=== PATIENT | female | born 1980 | race Caucasian/White ===

== ENCOUNTER 2019-08-20 23:07 | Inpatient (IN) | payer OTHER ==
[2019-08-20 23:42] VITALS: BMI 35.6
--- NOTE | 2019-08-21 01:47 | HP ---
COWS - Scale Resting Pulse: 0= CT 80 or Below Sweatin=Flushed/Facial Moisture Restless Observation: 0= Sits Still Pupil Size: 0= Normal to Room Light Bone or Joint Aches: 4=Acute Joint/Muscle Pain Runny Nose/ Eye Tearin= Runny Nose/Eyes GI Upset > 30mins: 2= Nausea/Diarrhea Tremor Observation: 4= Gross Tremor/Twitching Yawning Observation: 1= 1-2x During Session Anxiety or Irritability: 2=Irritable/Anxious Goose Flesh Skin: 3=Piloerection COWS Score: 20 CIWA Score Nausea/Vomitin Muscle Tremors: 4-Moderate,w/Arms Extend Anxiety: 4-Mod. Anxious/Guarded Agitation: 4-Moderately Restless Paroxysmal Sweats: 2 Orientation: 0-Oriented Tacttile Disturbances: 0-None Auditory Disturbances: 2-Mild Harshness/Frighten Visual Disturbances: 2-Mild Sensitivity Headache: 0-None Present CIWA-Ar Total Score: 20 - Admission Criteria OASAS Guidelines: Admission for Medically Managed Detox: Requires at least one of the followin. CIWA greater than 12 2. Seizures within the past 24 hours 3. Delirium tremens within the past 24 hours 4. Hallucinations within the past 24 hours 5. Acute intervention needed for co occurring medical disorder 6. Acute intervention needed for co occurring psychiatric disorder 7. Severe withdrawal that cannot be handled at a lower level of care (continued vomiting, continued diarrhea, abnormal vital signs) requiring intravenous medication and/or fluids 8. Admission [facility] Chief Complaint: Alcohol and heroine withdrawal symptoms Allergies/Adverse Reactions: Allergies Allergy/AdvReac Type Severity Reaction Status Date / Time No Known Allergies Allergy Verified 08/20/19 23:25 History of Present Illness: 38 years old female with alcohol withdrawal symptoms is seeking admission to detox. This is her first time and first admission to [facility].. She has medical history of seizures nd asthma. Reports psych history of PTSD, depression, Bipolar disorder. She reports suicide attempt at age 14 and denies suicidal ideation a this time. She is a smoker. Exam Limitations: No Limitations - Ebola screening Have you traveled outside of the country in the last 21 days: No (N) Have you had contact with anyone from an Ebola affected area: No Do you have a fever: No - Review of Systems Constitutional: Chills, Loss of Appetite, Malaise, Night Sweats, Changes in sleep, Weakness EENT: reports: No Symptoms Reported, Nose Congestion Respiratory: reports: Shortness of Breath, Wheezing, Hemoptysis Cardiac: reports: No Symptoms Reported GI: reports: See HPI, Diarrhea, Poor Appetite, Poor Fluid Intake Patient History - Patient Medical History Hx Anemia: No Hx Asthma: Yes (Albuterol) Hx Chronic Obstructive Pulmonary Disease (COPD): No Hx Cancer: No Hx Cardiac Disorders: No Hx Congestive Heart Failure: No Hx Hypertension: No Hx Hypercholesterolemia: No HX Cerebrovascular Accident: No Hx Seizures: Yes (Depakote) Hx Dementia: No Hx Diabetes: No Hx Gastrointestinal Disorders: Yes (GERD -) Hx Liver Disease: No Hx Genitourinary Disorders: No Hx Sexually Transmitted Disorders: No Hx Renal Disease (ESRD): No Hx Thyroid Disease: No Hx Human Immunodeficiency Virus (HIV): No Hx Hepatitis C: No Hx Depression: No - Patient Surgical History Past Surgical History: No - PPD History Documented Results: Negative w/o proof Implanted On Prior [facility] Admission?: No PPD to be Administered?: Yes - Reproductive History Patient is a Female of Child Bearing Age (11 -55 yrs old): Yes Last Menstrual Period: 08/07/19 Patient : No - Smoking Cessation Smoking history: Current every day smoker Have you smoked in the past 12 months: Yes Aproximately how many cigarettes per day: 25 Hx Chewing Tobacco Use: No Initiated information on smoking cessation: Yes 'Breaking Loose' booklet given: 08/21/19 - Substance & Tx. History Hx Alcohol Use: Yes Hx Substance Use: Yes Substance Use Type: Alcohol, Cocaine, Heroin, Marijuana, Opiates Hx Substance Use Treatment: Yes ([facility]) - Substances abused Alcohol Substance route: Oral Frequency: Daily Amount used: 2 to 3 pints of vodka. 10 cans of beer. Age of first use: 14 Date of last use: 08/19/19 Heroin Substance route: Inhalation Frequency: Daily Amount used: 4 bags Age of first use: 20 Date of last use: 08/19/19 Marijuana/Hashish Substance route: Smoking Frequency: Daily Amount used: ' i don't know' Age of first use: 14 Date of last use: 08/19/19 Cocaine Substance route: Smoking Frequency: Daily Amount used: 100 dollars Age of first use: 17 Date of last use: 08/19/19 Admission Physical Exam [facility] - Vital Signs Vital Signs: Vital Signs - 24 hr 08/20/19 08/21/19 08/21/19 23:26 01:32 01:35 Temperature 98.0 F 98.0 F 98.0 F Pulse Rate 69 69 69 Respiratory 20 18 20 Rate Blood Pressure 128/82 128/82 128/82 - Physical General Appearance: Yes: Moderate Distress, Tremorous, Irritable, Sweating, Anxious HEENTM: Yes: Within Normal Limits, Normal Voice Respiratory: Yes: Lungs Clear, Normal Breath Sounds, No Respiratory Distress Neck: Yes: Supple Breast: Yes: Breast Exam Deferred Cardiology: Yes: Regular Rhythm, Regular Rate Abdominal: Yes: Normal Bowel Sounds Genitourinary: Yes: Within Normal Limits Back: Yes: Normal Inspection Musculoskeletal: Yes: Gait Steady Extremities: Yes: Tremors Neurological: Yes: Within Normal Limits, Fully Oriented - Diagnostic (1) Asthma Current Visit: Yes Status: Chronic (2) Seizure Current Visit: Yes Status: Chronic (3) Alcohol dependence with withdrawal, uncomplicated Current Visit: Yes Status: Acute (4) Opioid dependence with withdrawal Current Visit: Yes Status: Acute (5) Nicotine dependence Current Visit: Yes Status: Acute (6) Cocaine dependence Current Visit: Yes Status: Acute (7) Marijuana dependence Current Visit: Yes Status: Acute Cleared for Admission [facility] - Detox or Rehab [facility] Level of Care: Medically Managed Detox Regimen/Protocol: Methadone/Librium Breathalyzer - Breathalyzer Breathalyzer: 0 Urine Drug Screen - Test Device Lot number: [id number] Expiration date: 04/07/21 - Control Is test valid?: Yes - Results Drug screen NEGATIVE: No Urine drug screen results: THC-Marijuana, KELLEY-Cocaine, MOP-Opiates, BZO- Benzodiazepines Inpatient Rehab Admission - Rehab Decision to Admit Inpatient rehab admission?: No
[2019-08-21] MEDS ORDERED: cloNIDine HCL 0.1 MG TABLET PO PRN (01:58)
[2019-08-21] MEDS ORDERED: MAG HYDROX/AL HYDROX/SIMETH 30 ML UNIT-DOSE CUP PO PRN (01:58)
[2019-08-21] MEDS ORDERED: MAGNESIUM HYDROX 2400MG/30ML ORAL SUSPENSION 30 ML CUP PO PRN (01:58)
[2019-08-21] MEDS ORDERED: METHADONE HCL 10 MG TABLET (FOR DETOX USE ONLY) PO ONE (01:58)
[2019-08-21] MEDS ORDERED: MENTHOL/PHENOL 1 EACH UD MM PRN (01:58)
[2019-08-21] MEDS ORDERED: BISMUTH SUBSALICYLATE 524 MG/30 ML UD PO PRN (01:58)
[2019-08-21] MEDS ORDERED: ACETAMINOPHEN 325 MG TABLET (FP) PO PRN ×2 (01:58)
[2019-08-21] MEDS ORDERED: MAGNESIUM CITRATE 300 ML BOTTLE PO PRN (01:58)
[2019-08-21] MEDS ORDERED: MELATONIN 5 MG TABLETS PO PRN (01:58)
[2019-08-21] MEDS ORDERED: chlordiazePOXIDE HCL 25 MG CAPSULE PO PRN ×2 (01:58→03:19)
[2019-08-21] MEDS: IBUPROFEN 400 MG TABLET (FP) PO PRN ×3 (02:41→22:12)
[2019-08-21] MEDS: chlordiazePOXIDE HCL 25 MG CAPSULE PO SCH ×4 (05:43→22:12)
[2019-08-21] MEDS: PRENATAL VITAMINS W/ FOLIC ACID TABLET (FP) PO SCH (10:19)
[2019-08-21] MEDS: METHOCARBAMOL 500 MG TABLET PO PRN (10:19)
[2019-08-21] MEDS: NICOTINE POLACRILEX 2 MG GUM BUC PRN (10:25)
[2019-08-21] MEDS: NICOTINE 14 MG/24 HOURS TOPICAL PATCH TD SCH (10:26)
--- NOTE | 2019-08-21 12:58 | EKG ---
Test Reason : Blood Pressure : / mmHG Vent. Rate : 065 BPM Atrial Rate : 065 BPM P-R Int : 164 ms QRS Dur : 092 ms QT Int : 416 ms P-R-T Axes : 064 018 050 degrees QTc Int : 432 ms NORMAL SINUS RHYTHM WITH SINUS ARRHYTHMIA NORMAL ECG NO PREVIOUS ECGS AVAILABLE Confirmed by KIMANI SPICER MD ([id number]) on 08/21/2019 12:57:58 PM Referred By: Malcolm Ferreira Confirmed By:KIMANI SPICER MD
--- NOTE | 2019-08-21 14:14 | PN ---
[facility] CIWA - CIWA Score Nausea/Vomitin-No Nausea/No Vomiting Muscle Tremors: 2 Anxiety: 4-Mod. Anxious/Guarded Agitation: 0-Normal Activity Paroxysmal Sweats: 3 Orientation: 0-Oriented Tacttile Disturbances: 2-Mild Itch/Numbness/Burn Auditory Disturbances: 0-None Visual Disturbances: 2-Mild Sensitivity Headache: 0-None Present CIWA-Ar Total Score: 13 BHS COWS - Scale Resting Pulse: 0= CT 80 or Below Sweatin= Chills/Flushing Restless Observation: 1= Difficult to Sit Still Pupil Size: 0= Normal to Room Light Bone or Joint Aches: 4=Acute Joint/Muscle Pain Runny Nose/ Eye Tearin= None GI Upset > 30mins: 0= None Tremor Observation of Outstretched Hands: 2= Slight Tremor Visible Yawning Observation: 1= 1-2x During Session Anxiety or Irritability: 2=Irritable/Anxious Goose Flesh Skin: 3=Piloerection COWS Score: 14 BHS Progress Note (SOAP) Subjective: Anxious, Body Aches, Sweating, Tremors. Objective: PATIENT A & O X 3. IN NO ACUTE DISTRESS. 08/21/19 14:17 Vital Signs Temperature 97.1 F L 08/21/19 13:31 Pulse Rate 58 L 08/21/19 13:31 Respiratory Rate 18 08/21/19 13:31 Blood Pressure 109/62 08/21/19 13:31 O2 Sat by Pulse Oximetry (%) RESULTS OF DETOX ADMISSION LABS PENDING. Assessment: 08/21/19 14:16 WITHDRAWAL SYMPTOMS. Plan: CONTINUE DETOX. TODAY, PATIENT REPORTED THAT SHE FELL APPROX. 1 WEEK AGO AND THAT SHE HIT HER HEAD. PATIENT NOTES THAT SHE WAS EVALUATED AT [facility] ([facility] [place] ) AFTER FALL, BUT THAT CT SCAN WAS NOT DONE THERE. PATIENT REPORTS THAT LEFT SIDE OF FOREHEAD STILL HURTS. PATIENT DENIES DIZZINESS. SMALL AREA OF SWELLING NOTED ON LEFT SIDE OF FOREHEAD. NO ERYTHEMA, WOUNDS, OR DISCHARGE NOTED AT AFFECTED SITE. PATIENT ALSO REPORTS PAIN ON SOLE OF LEFT FOOT, JUST POSTERIOR TO TOES. PATIENT FRACTURED METATARSAL BONE IN FOOT SEVERAL MONTHS AGO, BUT REPORTS THAT SHE BELIEVES THAT "FRACTURE NEVER HEALED PROPERLY." AREA APPEARS SOMEWHAT SWOLLEN. PATIENT REPORTS AREA TO BE TENDER TO PALPATION. REPORT GIVEN TO DR. SEALS AT [facility]. PATIENT TO BE SENT TO ER VIA AMBULANCE FOR FURTHER EVALUATION OF HEAD AND OF LEFT FOOT.
--- NOTE | 2019-08-21 16:36 | CONSULT ---
[facility] Psychiatric Consult - Data Date of interview: 08/21/19 Admission source: [facility] Identifying data: Patient is not found on the unit. Psychiatric evaluation cannot be conducted. As per counselor, the patient was transferred to [facility] for medical management.
[2019-08-21] MEDS ORDERED: METHADONE HCL 10 MG TABLET PO ONE (21:55)
--- NOTE | 2019-08-21 21:57 | PN ---
[facility] Progress Note Note: Patient returned from [facility] ED, alert and oriented w/o c/o headache or neurologicla deficits, after being sent earlier today for a fall resulting in hitting her head. ED Assessment and discharge orders: Pt appearing and stable here with no focal deficits. CT negative Pt stable for return back to [facility] Patient returned to continue detox on [address]. Patient c/o feeling nauseous, having tremors, and feeling opiate having withdrawal symptoms. Last medicated w/ methadone at 2:38 am. Will give a once dose Methadone 10 mg PO.
[2019-08-21] MEDS: THIAMINE HCL 100 MG TABLET (FP) PO SCH (22:11)
[2019-08-21] MEDS ORDERED: chlordiazePOXIDE HCL 25 MG CAPSULE PO SCH (23:00)
[2019-08-22] MEDS: chlordiazePOXIDE HCL 25 MG CAPSULE PO SCH ×4 (05:35→22:15)
[2019-08-22] MEDS ORDERED: METHADONE HCL 10 MG TABLET (FOR DETOX USE ONLY) ONE (05:37)
[2019-08-22] MEDS ORDERED: METHADONE HCL 5 MG TABLET (FOR DETOX USE ONLY) ONE (05:38)
[2019-08-22] MEDS: IBUPROFEN 400 MG TABLET (FP) PO PRN ×3 (06:00→17:09)
[2019-08-22] MEDS ORDERED: METHADONE (DETOX) 20 MG, METHADONE (DETOX) 5 MG PO ONE (06:00)
[2019-08-22 09:38] LABS: HEMATOCRIT 36.8 % (32.4-45.2); HEMOGLOBIN 12.1 GM/dL (10.7-15.3); MCH 30.6 pg (25.7-33.7); MCHC 32.9 g/dl (32.0-36.0); MEAN CELL VOLUME 93.1 fl (80-96); MEAN PLT VOLUME 9.1 fl (7.5-11.1); PLATELET COUNT 244 K/MM3 (134-434); RBC 3.95 M/mm3 (3.60-5.2); RDW 13.8 % (11.6-15.6)
[2019-08-22 10:02] LABS: ALBUMIN 3.1 g/dl (3.4-5.0); BILIRUBIN,TOTAL 0.3 mg/dL (0.2-1); CALCIUM 8.1 mg/dL (8.5-10.1); CREATININE 0.8 mg/dL (0.55-1.3); POTASSIUM 4.1 mmol/L (3.5-5.1); TOT PROT 6.2 g/dl (6.4-8.2)
[2019-08-22] MEDS: PRENATAL VITAMINS W/ FOLIC ACID TABLET (FP) PO SCH (10:18)
[2019-08-22] MEDS: NICOTINE 14 MG/24 HOURS TOPICAL PATCH TD SCH (10:18)
[2019-08-22] MEDS: NICOTINE POLACRILEX 2 MG GUM BUC PRN ×2 (10:20→17:46)
[2019-08-22] MEDS: DIVALPROEX SODIUM 250 MG TABLET E.C. PO SCH ×2 (13:17→22:14)
[2019-08-22] MEDS: CLOTRIMAZOLE 1% CREAM 15 GM TUBE TP SCH ×2 (13:17→22:14)
--- NOTE | 2019-08-22 14:19 | PN ---
S CIWA - CIWA Score Nausea/Vomitin-No Nausea/No Vomiting Muscle Tremors: None Anxiety: 4-Mod. Anxious/Guarded Agitation: 0-Normal Activity Paroxysmal Sweats: 3 Orientation: 0-Oriented Tacttile Disturbances: 2-Mild Itch/Numbness/Burn Auditory Disturbances: 0-None Visual Disturbances: 2-Mild Sensitivity Headache: 0-None Present CIWA-Ar Total Score: 11 S COWS - Scale Resting Pulse: 0= [place] 80 or Below Sweatin= Chills/Flushing Restless Observation: 0= Sits Still Pupil Size: 0= Normal to Room Light Bone or Joint Aches: 2= Severe Diffuse Aches Runny Nose/ Eye Tearin= Nasal Congestion GI Upset > 30mins: 0= None Tremor Observation of Outstretched Hands: 0= None Yawning Observation: 1= 1-2x During Session Anxiety or Irritability: 2=Irritable/Anxious Goose Flesh Skin: 3=Piloerection COWS Score: 10 S Progress Note (SOAP) Subjective: Anxious, Sweating, Fatigue, Body Aches. Objective: PATIENT A & O X 3, OBSERVED AMBULATING ON DETOX UNIT UNASSISTED. IN NO ACUTE DISTRESS. 08/22/19 14:15 Vital Signs Temperature 97.0 F L 08/22/19 13:21 Pulse Rate 58 L 08/22/19 13:21 Respiratory Rate 18 08/22/19 13:21 Blood Pressure 112/76 08/22/19 13:21 O2 Sat by Pulse Oximetry (%) Laboratory Tests 08/21/19 08/22/19 08/22/19 01:48 07:50 07:50 WBC 4.0 RBC 3.95 Hgb 12.1 Hct 36.8 MCV 93.1 MCH 30.6 MCHC 32.9 RDW 13.8 Plt Count 244 MPV 9.1 Sodium 141 Potassium 4.1 Chloride 106 Carbon Dioxide 26 Anion Gap 8 BUN 18.0 Creatinine 0.8 Est GFR (CKD-EPI)AfAm 109.93 Est GFR (CKD-EPI)NonAf 94.85 Random Glucose 115 H Calcium 8.1 L Total Bilirubin 0.3 AST 13 L ALT 22 Alkaline Phosphatase 73 Total Protein 6.2 L Albumin 3.1 L POC Urine HCG, Qual Negative RPR Titer 08/22/19 07:50 WBC RBC Hgb Hct MCV MCH MCHC RDW Plt Count MPV Sodium Potassium Chloride Carbon Dioxide Anion Gap BUN Creatinine Est GFR (CKD-EPI)AfAm Est GFR (CKD-EPI)NonAf Random Glucose Calcium Total Bilirubin AST ALT Alkaline Phosphatase Total Protein Albumin POC Urine HCG, Qual RPR Titer Nonreactive LABS NOTED. Assessment: 08/22/19 14:15 WITHDRAWAL SYMPTOMS. HYPOCALCEMIA. Plan: CONTINUE DETOX. PATIENT EVALUATED AT [facility] LAST NIGHT FOR CT OF HEAD (S/P INJURY DUE TO RECENT FALL), SEE [facility] NOTE FOR . CT SCAN NEGATIVE FOR ACUTE PATHOLOGY. X-RAY OF LEFT FOOT NOT DONE AT [facility] ER (PATIENT REPORTS HISTORY OF FRACTURE THAT SHE BELIEVES DID NOT HEAL PROPERLY. X-RAY ORDERED FOR HERE AT [facility] FOR TOMORROW WHEN RADIOLOGY DEPARTMENT NEXT OPEN HERE.
[2019-08-22] MEDS: THIAMINE HCL 100 MG TABLET (FP) PO SCH (22:15)
[2019-08-22] MEDS: CALCIUM 500MG/VIT-D 200 UNITS COMBO TABLET (FP) PO SCH (22:15)
[2019-08-22] MEDS: MELATONIN 5 MG TABLETS PO PRN (22:15)
[2019-08-22] MEDS: hydrOXYzine PAMOATE 25 MG CAPSULE (FP) PO PRN (22:16)
[2019-08-23] MEDS ORDERED: chlordiazePOXIDE HCL 10 MG CAPSULE PO PRN
[2019-08-23] MEDS ORDERED: chlordiazePOXIDE HCL 25 MG CAPSULE PO SCH (05:00)
[2019-08-23] MEDS ORDERED: METHADONE HCL 10 MG TABLET (FOR DETOX USE ONLY) PO ONE (06:00)
[2019-08-23] MEDS: chlordiazePOXIDE HCL 10 MG CAPSULE PO SCH ×4 (06:03→22:23)
[2019-08-23] MEDS: IBUPROFEN 400 MG TABLET (FP) PO PRN ×2 (06:07→22:30)
[2019-08-23] MEDS: DIVALPROEX SODIUM 250 MG TABLET E.C. PO SCH ×2 (10:57→22:24)
[2019-08-23] MEDS: PRENATAL VITAMINS W/ FOLIC ACID TABLET (FP) PO SCH (10:57)
[2019-08-23] MEDS: CALCIUM 500MG/VIT-D 200 UNITS COMBO TABLET (FP) PO SCH ×2 (11:00→22:23)
[2019-08-23] MEDS: NICOTINE 14 MG/24 HOURS TOPICAL PATCH TD SCH (11:00)
[2019-08-23] MEDS: CLOTRIMAZOLE 1% CREAM 15 GM TUBE TP SCH ×2 (11:00→22:24)
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
--- NOTE | 2019-08-23 17:32 | PN ---
S CIWA - CIWA Score Nausea/Vomitin-No Nausea/No Vomiting Muscle Tremors: None Anxiety: 3 Agitation: 1-Slight > Activity Paroxysmal Sweats: 3 Orientation: 2-Disoriented Date<2 days Tacttile Disturbances: 1-Very Mild Itch/Numbness Auditory Disturbances: 0-None Visual Disturbances: 1-Very Mild Sensitivity Headache: 0-None Present CIWA-Ar Total Score: 11 BHS COWS - Scale Resting Pulse: 0= [place] 80 or Below Sweatin= Chills/Flushing Restless Observation: 1= Difficult to Sit Still Pupil Size: 0= Normal to Room Light Bone or Joint Aches: 2= Severe Diffuse Aches Runny Nose/ Eye Tearin= Nasal Congestion GI Upset > 30mins: 0= None Tremor Observation of Outstretched Hands: 0= None Yawning Observation: 1= 1-2x During Session Anxiety or Irritability: 2=Irritable/Anxious Goose Flesh Skin: 0=Smooth Skin COWS Score: 8 BHS Progress Note (SOAP) Subjective: Anxious, Sweating, Body Aches. Objective: PATIENT A & O X 2 (UNCERTAIN ABOUT CURRENT DAY/ DATE). PATIENT OBSERVED AMBULATING ON DETOX UNIT UNASSISTED. IN NO ACUTE DISTRESS. 08/23/19 17:31 Vital Signs Temperature 98 F 08/23/19 13:58 Pulse Rate 64 08/23/19 13:58 Respiratory Rate 16 08/23/19 13:58 Blood Pressure 115/66 08/23/19 13:58 O2 Sat by Pulse Oximetry (%) Laboratory Tests 08/21/19 08/22/19 08/22/19 01:48 07:50 07:50 WBC 4.0 RBC 3.95 Hgb 12.1 Hct 36.8 MCV 93.1 MCH 30.6 MCHC 32.9 RDW 13.8 Plt Count 244 MPV 9.1 Sodium 141 Potassium 4.1 Chloride 106 Carbon Dioxide 26 Anion Gap 8 BUN 18.0 Creatinine 0.8 Est GFR (CKD-EPI)AfAm 109.93 Est GFR (CKD-EPI)NonAf 94.85 Random Glucose 115 H Calcium 8.1 L Total Bilirubin 0.3 AST 13 L ALT 22 Alkaline Phosphatase 73 Total Protein 6.2 L Albumin 3.1 L POC Urine HCG, Qual Negative RPR Titer 08/22/19 07:50 WBC RBC Hgb Hct MCV MCH MCHC RDW Plt Count MPV Sodium Potassium Chloride Carbon Dioxide Anion Gap BUN Creatinine Est GFR (CKD-EPI)AfAm Est GFR (CKD-EPI)NonAf Random Glucose Calcium Total Bilirubin AST ALT Alkaline Phosphatase Total Protein Albumin POC Urine HCG, Qual RPR Titer Nonreactive LABS NOTED. Assessment: 08/23/19 17:32 WITHDRAWAL SYMPTOMS. HYPOCALCEMIA. Plan: CONTINUE DETOX. INCREASE DAILY PO WATER INTAKE.
[2019-08-23] MEDS: QUEtiapine FUMARATE 100 MG TABLET (FP) PO SCH (19:32)
[2019-08-23] MEDS ORDERED: QUEtiapine FUMARATE 100 MG TABLET (FP) PO SCH (22:00)
[2019-08-23] MEDS: THIAMINE HCL 100 MG TABLET (FP) PO SCH (22:23)
[2019-08-23] MEDS: traZODone HCL 100 MG TABLET (FP) PO SCH (22:24)
[2019-08-23] MEDS: MELATONIN 5 MG TABLETS PO PRN (22:25)
[2019-08-23] MEDS: NICOTINE POLACRILEX 2 MG GUM BUC PRN (22:29)
[2019-08-24] MEDS ORDERED: chlordiazePOXIDE HCL 10 MG CAPSULE PO PRN
[2019-08-24] MEDS ORDERED: METHADONE HCL 10 MG TABLET (FOR DETOX USE ONLY) ONE (04:51)
[2019-08-24] MEDS ORDERED: METHADONE HCL 5 MG TABLET (FOR DETOX USE ONLY) ONE (04:51)
[2019-08-24] MEDS ORDERED: chlordiazePOXIDE HCL 10 MG CAPSULE PO SCH (05:00)
[2019-08-24] MEDS ORDERED: METHADONE (DETOX) 10 MG, METHADONE (DETOX) 5 MG PO ONE (06:00)
[2019-08-24] MEDS: chlordiazePOXIDE HCL 10 MG CAPSULE PO SCH ×2 (06:06→16:47)
[2019-08-24] MEDS: IBUPROFEN 400 MG TABLET (FP) PO PRN ×2 (06:08→16:47)
[2019-08-24] MEDS: NICOTINE POLACRILEX 2 MG GUM BUC PRN ×2 (06:11→10:45)
[2019-08-24] MEDS: DIVALPROEX SODIUM 250 MG TABLET E.C. PO SCH ×2 (10:43→21:24)
[2019-08-24] MEDS: CLOTRIMAZOLE 1% CREAM 15 GM TUBE TP SCH ×2 (10:43→21:27)
[2019-08-24] MEDS: PRENATAL VITAMINS W/ FOLIC ACID TABLET (FP) PO SCH (10:44)
[2019-08-24] MEDS: NICOTINE 14 MG/24 HOURS TOPICAL PATCH TD SCH (10:44)
[2019-08-24] MEDS: CALCIUM 500MG/VIT-D 200 UNITS COMBO TABLET (FP) PO SCH ×2 (10:44→21:25)
[2019-08-24] MEDS: FLUoxetine HCL 20 MG CAPSULE (FP) PO SCH (10:45)
--- NOTE | 2019-08-24 11:09 | PN ---
[facility] CIWA - CIWA Score Nausea/Vomitin-No Nausea/No Vomiting Muscle Tremors: 1-None Visible, but [place] Anxiety: 4-Mod. Anxious/Guarded Agitation: 4-Moderately Restless Paroxysmal Sweats: 1-Minimal Palms Moist Orientation: 0-Oriented Tacttile Disturbances: 0-None Auditory Disturbances: 0-None Visual Disturbances: 0-None Headache: 0-None Present CIWA-Ar Total Score: 10 S COWS - Scale Resting Pulse: 0= [place] 80 or Below Sweatin= No chills or Flushing Restless Observation: 5= Unable to Sit Still Pupil Size: 0= Normal to Room Light Bone or Joint Aches: 0= None Runny Nose/ Eye Tearin= None GI Upset > 30mins: 0= None Tremor Observation of Outstretched Hands: 0= None Yawning Observation: 0= None Anxiety or Irritability: 4=Extreme Anxiety Goose Flesh Skin: 0=Smooth Skin COWS Score: 9 S Progress Note (SOAP) Subjective: c/o of interrupted sleep, chills, anxious Objective: 08/24/19 11:06 Vital Signs Temperature 99.3 F 08/24/19 09:11 Pulse Rate 84 08/24/19 09:11 Respiratory Rate 18 08/24/19 09:11 Blood Pressure 104/58 L 08/24/19 09:11 O2 Sat by Pulse Oximetry (%) Laboratory Last Values WBC 4.0 K/mm3 (4.0-10.0) 08/22/19 07:50 RBC 3.95 M/mm3 (3.60-5.2) 08/22/19 07:50 Hgb 12.1 GM/dL (10.7-15.3) 08/22/19 07:50 Hct 36.8 % (32.4-45.2) 08/22/19 07:50 MCV 93.1 fl (80-96) 08/22/19 07:50 MCH 30.6 pg (25.7-33.7) 08/22/19 07:50 MCHC 32.9 g/dl (32.0-36.0) 08/22/19 07:50 RDW 13.8 % (11.6-15.6) 08/22/19 07:50 Plt Count 244 K/MM3 (134-434) 08/22/19 07:50 MPV 9.1 fl (7.5-11.1) 08/22/19 07:50 Sodium 141 mmol/L (136-145) 08/22/19 07:50 Potassium 4.1 mmol/L (3.5-5.1) 08/22/19 07:50 Chloride 106 mmol/L (98-107) 08/22/19 07:50 Carbon Dioxide 26 mmol/L (21-32) 08/22/19 07:50 Anion Gap 8 MMOL/L (8-16) 08/22/19 07:50 BUN 18.0 mg/dL (7-18) 08/22/19 07:50 Creatinine 0.8 mg/dL (0.55-1.3) 08/22/19 07:50 Est GFR (CKD-EPI)AfAm 109.93 08/22/19 07:50 Est GFR (CKD-EPI)NonAf 94.85 08/22/19 07:50 Random Glucose 115 mg/dL (74-106) H 08/22/19 07:50 Calcium 8.1 mg/dL (8.5-10.1) L 08/22/19 07:50 Total Bilirubin 0.3 mg/dL (0.2-1) 08/22/19 07:50 AST 13 U/L (15-37) L 08/22/19 07:50 ALT 22 U/L (13-61) 08/22/19 07:50 Alkaline Phosphatase 73 U/L (45-117) 08/22/19 07:50 Total Protein 6.2 g/dl (6.4-8.2) L 08/22/19 07:50 Albumin 3.1 g/dl (3.4-5.0) L 08/22/19 07:50 POC Urine HCG, Qual Negative 08/21/19 01:48 RPR Titer Nonreactive (NONREACTIVE) 08/22/19 07:50 Assessment: 08/24/19 11:09 Patient Aox3, irritable and pacing on the unit EENT WNL Full ROM no gait disturbance withdrawal sx Plan: Patient reports current;ly taking seroquel 200 mg TID , trazone 150 mg hs in the community, patient was seen by [facility] yested[facility] and dose were adjusted and she is requesting dose increase. Psych consult ordered
[2019-08-24] MEDS: METHOCARBAMOL 500 MG TABLET PO PRN (16:48)
[2019-08-24] MEDS: QUEtiapine FUMARATE 100 MG TABLET (FP) PO SCH (21:00)
[2019-08-24] MEDS: traZODone HCL 100 MG TABLET (FP) PO SCH (21:24)
[2019-08-24] MEDS: THIAMINE HCL 100 MG TABLET (FP) PO SCH (21:24)
[2019-08-25] MEDS ORDERED: chlordiazePOXIDE HCL 10 MG CAPSULE PO SCH (05:00)
[2019-08-25] MEDS ORDERED: chlordiazePOXIDE HCL 10 MG CAPSULE PO ONE (05:00)
[2019-08-25] MEDS: IBUPROFEN 400 MG TABLET (FP) PO PRN (06:05)
[2019-08-25] MEDS: METHADONE HCL 10 MG TABLET (FOR DETOX USE ONLY) PO ONE ×2 (07:04→07:30)
[2019-08-25] MEDS: DIVALPROEX SODIUM 250 MG TABLET E.C. PO SCH ×2 (10:55→22:32)
[2019-08-25] MEDS: CLOTRIMAZOLE 1% CREAM 15 GM TUBE TP SCH ×2 (10:55→22:38)
[2019-08-25] MEDS: PRENATAL VITAMINS W/ FOLIC ACID TABLET (FP) PO SCH (10:55)
[2019-08-25] MEDS: NICOTINE 14 MG/24 HOURS TOPICAL PATCH TD SCH (10:55)
[2019-08-25] MEDS: FLUoxetine HCL 20 MG CAPSULE (FP) PO SCH (10:55)
[2019-08-25] MEDS: CALCIUM 500MG/VIT-D 200 UNITS COMBO TABLET (FP) PO SCH ×2 (10:56→22:33)
[2019-08-25] MEDS: NICOTINE POLACRILEX 2 MG GUM BUC PRN (10:59)
--- NOTE | 2019-08-25 15:47 | PN ---
S CIWA - CIWA Score Nausea/Vomitin Muscle Tremors: 1-None Visible, but [place] Anxiety: 2 Agitation: 1-Slight > Activity Paroxysmal Sweats: 2 Orientation: 0-Oriented Tacttile Disturbances: 1-Very Mild Itch/Numbness Auditory Disturbances: 0-None Visual Disturbances: 0-None Headache: 0-None Present CIWA-Ar Total Score: 9 BHS COWS - Scale Resting Pulse: 0= [place] 80 or Below Sweatin= Chills/Flushing Restless Observation: 1= Difficult to Sit Still Pupil Size: 1= Pupils >than Normal Bone or Joint Aches: 1= Mild Discomfort Runny Nose/ Eye Tearin= None GI Upset > 30mins: 2= Nausea/Diarrhea Tremor Observation of Outstretched Hands: 1= Tremor [place], Not Seen Yawning Observation: 0= None Anxiety or Irritability: 1=Feels Anxious/Irritable Goose Flesh Skin: 0=Smooth Skin COWS Score: 8 S Progress Note (SOAP) Subjective: interrupted sleep, sweats , nausea Objective: 08/25/19 15:46 Vital Signs Temperature 98.7 F 08/25/19 13:44 Pulse Rate 73 08/25/19 13:44 Respiratory Rate 18 08/25/19 13:44 Blood Pressure 97/61 08/25/19 13:44 O2 Sat by Pulse Oximetry (%) Laboratory Tests 08/21/19 08/22/19 08/22/19 01:48 07:50 07:50 WBC 4.0 RBC 3.95 Hgb 12.1 Hct 36.8 MCV 93.1 MCH 30.6 MCHC 32.9 RDW 13.8 Plt Count 244 MPV 9.1 Sodium 141 Potassium 4.1 Chloride 106 Carbon Dioxide 26 Anion Gap 8 BUN 18.0 Creatinine 0.8 Est GFR (CKD-EPI)AfAm 109.93 Est GFR (CKD-EPI)NonAf 94.85 Random Glucose 115 H Calcium 8.1 L Total Bilirubin 0.3 AST 13 L ALT 22 Alkaline Phosphatase 73 Total Protein 6.2 L Albumin 3.1 L POC Urine HCG, Qual Negative Valproic Acid RPR Titer 08/22/19 08/24/19 07:50 07:50 WBC RBC Hgb Hct MCV MCH MCHC RDW Plt Count MPV Sodium Potassium Chloride Carbon Dioxide Anion Gap BUN Creatinine Est GFR (CKD-EPI)AfAm Est GFR (CKD-EPI)NonAf Random Glucose Calcium Total Bilirubin AST ALT Alkaline Phosphatase Total Protein Albumin POC Urine HCG, Qual Valproic Acid 39.2 L RPR Titer Nonreactive obese f pt lying in bed in nad Assessment: 08/25/19 15:47 withdrawal sx's Plan: cont. detox increase fluids d/c in am.
[2019-08-25] MEDS: hydrOXYzine PAMOATE 25 MG CAPSULE (FP) PO PRN (17:31)
[2019-08-25] MEDS: METHOCARBAMOL 500 MG TABLET PO PRN (17:31)
[2019-08-25] MEDS: traZODone HCL 100 MG TABLET (FP) PO SCH (22:32)
[2019-08-25] MEDS: QUEtiapine FUMARATE 100 MG TABLET (FP) PO SCH (22:32)
[2019-08-25] MEDS: THIAMINE HCL 100 MG TABLET (FP) PO SCH (22:32)
[2019-08-25] MEDS: MELATONIN 5 MG TABLETS PO PRN (22:36)
[2019-08-26] MEDS ORDERED: chlordiazePOXIDE HCL 10 MG CAPSULE PO ONE (05:00)
[2019-08-26] MEDS ORDERED: METHADONE HCL 5 MG TABLET (FOR DETOX USE ONLY) PO ONE (06:00)
[2019-08-26] MEDS: DIVALPROEX SODIUM 250 MG TABLET E.C. PO SCH ×2 (10:33→22:53)
[2019-08-26] MEDS: FLUoxetine HCL 20 MG CAPSULE (FP) PO SCH (10:33)
[2019-08-26] MEDS: PRENATAL VITAMINS W/ FOLIC ACID TABLET (FP) PO SCH (10:33)
[2019-08-26] MEDS: CLOTRIMAZOLE 1% CREAM 15 GM TUBE TP SCH ×2 (10:33→22:55)
[2019-08-26] MEDS: NICOTINE 14 MG/24 HOURS TOPICAL PATCH TD SCH (10:34)
[2019-08-26] MEDS: CALCIUM 500MG/VIT-D 200 UNITS COMBO TABLET (FP) PO SCH ×2 (10:34→23:02)
--- NOTE | 2019-08-26 14:16 | DS ---
[facility] Detox Discharge Summary Admission Date: 08/21/19 Discharge Date: 08/26/19 - History Present History: Alcohol Dependence, Opioid Dependence Pertinent Past History: Pt completed detox- alcohol and opioids. Pt discussed with counselor re discharge options- pt to go home. Pt states would like to get MAT methadone. pt not on medical meds - Physical Exam Results Vital Signs: Vital Signs Temperature 96.7 F L 08/26/19 13:36 Pulse Rate 77 08/26/19 13:36 Respiratory Rate 18 08/26/19 13:36 Blood Pressure 98/62 08/26/19 13:36 O2 Sat by Pulse Oximetry (%) - Treatment Hospital Course: Detox Protocol Followed, Detoxed Safely, Responded well, Discharged Condition Good - Medication Discharge Medications: Ambulatory Orders Divalproex Sodium [Depakote] 500 mg PO BID 08/20/19 Fluoxetine HCl [Prozac] 60 mg PO DAILY 08/20/19 Quetiapine Fumarate [Seroquel] 100 mg PO TID 08/20/19 Trazodone HCl 150 mg PO HS 08/20/19
--- NOTE | 2019-08-26 16:38 | PN ---
Psychiatric Progress Note Vital Signs: Vital Signs Period Temp Pulse Resp BP Sys/[place] Pulse Ox Last 24 Hr 96.4 F-98.9 F 64-77 16-18 92-106/56-66 Date of Session: 08/26/19 Chief Complaint:: " I need one more day to set up my transfer to [facility]." HPI: Day 5 of detoxification. Patient is addressing ANTONETTE (heroin + alcohol) co- morbid with bipolar disorder. Ms Rivas is doing much better. She is not psychotic. Mood has improved. Benign detoxification course. Psychiatric follow- up is sought in response to the patient's request for optimization of seroquel + trazodone doses (300 mg/day and 150 mg/hs respectively). Mental status has been stable throughout this hospitalization. ROS: Unremarkable. Current Medications: Active Medications Generic Name Dose Route Start Last Admin Trade Name Freq PRN Reason Stop Dose Admin Acetaminophen 650 mg 08/21/19 01:58 08/24/19 21:22 Tylenol - PO 650 mg Q6H PRN Administration PAIN LEVEL 4 - 6 Acetaminophen 650 mg 08/21/19 01:58 Tylenol - PO Q6H PRN FEVER Al Hydroxide/Mg Hydroxide 30 ml 08/21/19 01:58 Mylanta Oral Suspension - PO Q6H PRN DYSPEPSIA Bismuth Subsalicylate 524 mg 08/21/19 01:58 Pepto-Bismol - PO Q1H PRN DIARRHEA Calcium Carbonate/Cholecalciferol 1 tab 08/22/19 22:00 08/26/19 10:34 Os-John 500+D - PO 1 tab BID ALFA Administration Clotrimazole 1 applic 08/22/19 12:00 08/26/19 10:33 Lotrimin 1% Cream - TP 1 applic BID ALFA Administration Divalproex Sodium 500 mg 08/22/19 11:45 08/26/19 10:33 Depakote - PO 500 mg BID ALFA Administration Eucalyptus/Menthol/Phenol/Sorbitol 1 each 08/21/19 01:58 Cepastat Lozenge - MM 08/27/19 01:58 Q4H PRN SORE THROAT Fluoxetine HCl 40 mg 08/24/19 10:00 08/26/19 10:33 Prozac - PO 40 mg DAILY ALFA Administration Hydroxyzine Pamoate 25 mg 08/21/19 01:58 08/25/19 17:31 Vistaril - PO 08/27/19 01:58 25 mg Q6H PRN Administration For Anxiety Ibuprofen 400 mg 08/21/19 01:58 08/25/19 06:05 Motrin - PO 400 mg Q6H PRN Administration PAIN LEVEL 1 - 3 Magnesium Citrate 300 ml 08/21/19 01:58 Citroma - PO Q48H PRN CONSTIPATION Magnesium Hydroxide 30 ml 08/21/19 01:58 Milk Of Magnesia - PO PRN PRN CONSTIPATION Melatonin 10 mg 08/22/19 19:47 08/25/19 22:36 Melatonin PO 10 mg HS PRN Administration INSOMNIA Methocarbamol 500 mg 08/21/19 01:58 08/25/19 17:31 Robaxin - PO 08/27/19 01:58 500 mg Q6H PRN Administration MUSCLE SPASMS Nicotine 14 mg 08/21/19 10:00 08/26/19 10:34 Nicoderm Patch - TD 14 mg DAILY ALFA Administration Nicotine Polacrilex 2 mg 08/21/19 02:05 08/25/19 10:59 Nicorette Gum - BUC 2 mg Q2H PRN Administration NICOTINE REPLACEMENT RX Multivit/Folic Acid/Iron 1 tab 08/21/19 10:00 08/26/19 10:33 Vitamins (Sjr) - PO 1 tab DAILY ALFA Administration Quetiapine Fumarate 100 mg 08/23/19 20:00 08/25/19 22:32 Seroquel - PO 100 mg HS@2000 ALFA Administration Thiamine HCl 100 mg 08/21/19 22:00 08/25/19 22:32 Vitamin B1 - PO 100 mg HS ALFA Administration Trazodone HCl 100 mg 08/23/19 22:00 08/25/19 22:32 Desyrel - PO 100 mg HS ALFA Administration Medication(s) Change(s): Changes : seroquel is raised to 100 mg po bid and trazodone stays at 100 mg po hs. Prozac remains, for now, at 40 mg po daily. This strategy is discussed with the patient. This cautious titration is done as a caution against orthostasis and oversedation which could lead to accidental falls. Moreover, the patient had, herself, indicated to this remote mortgage underwriter, that she was sporadically non-adherent to medications prior to this [facility] visit. Depakote 500 mg po bid. Side effects/benefits of this regimen are re-discussed with patient. Ms Rivas is in agreement with this plan of care. Current Side Effect: No Lab tests ordered: No Lab tests reviewed: Yes (negative test on admission; VA level = 32) Provider note:: Chart reviewed. Case discussed with nursing staff. Revisited with medical REGISTERED NURSE STEP DOWN Malcolm Baugh. Discharge is deferred until tomorrow. Met with patient in the presence of counselor Sheyla. Doing fine. She is awaiting transfer to [facility] for rehabilitation. Total face to face time:: 65 Mental Status Exam - Mental Status Exam Alert and Oriented to: Time, Place, Person Cognitive Function: Good Patient Appearance: Well Groomed Mood: Apprehensive (about prospect of going to [facility]), Hopeful Affect: Appropriate, Normal Range Patient Behavior: Appropriate, Cooperative Speech Pattern: Clear, Appropriate Voice Loudness: Normal Thought Process: Intact, Goal Oriented Thought Disorder: Not Present Hallucinations: Denies Suicidal Ideation: Denies Homicidal Ideation: Denies Insight/Judgement: Fair Sleep: Fair Appetite: Good Gait/Station: Normal Psychiatric Treatment Plan - Problem List (1) Alcohol dependence with withdrawal, uncomplicated Current Visit: Yes Comment: . (2) Opioid dependence with withdrawal Current Visit: Yes Comment: . (3) Cocaine dependence Current Visit: Yes Comment: . (4) Marijuana dependence Current Visit: Yes Comment: . (5) Nicotine dependence Current Visit: Yes Comment: . (6) History of bipolar disorder Current Visit: Yes Comment: . (7) Insomnia Current Visit: Yes Comment: .
[2019-08-26 20:48] VITALS: TEMP 98.3
[2019-08-26] MEDS ORDERED: QUEtiapine FUMARATE 100 MG TABLET (FP) PO SCH (22:00)
[2019-08-26] MEDS: traZODone HCL 100 MG TABLET (FP) PO SCH (22:53)
[2019-08-26] MEDS: THIAMINE HCL 100 MG TABLET (FP) PO SCH (22:53)
[2019-08-27 06:43] VITALS: BP 100/62; PULSE 78
--- NOTE | 2019-08-27 09:32 | PN ---
[facility] CIWA - CIWA Score Nausea/Vomitin-No Nausea/No Vomiting Muscle Tremors: 1-None Visible, but [place] Anxiety: 0-No Anxiety, at Ease Agitation: 0-Normal Activity Paroxysmal Sweats: No Perspiration Orientation: 0-Oriented Tacttile Disturbances: 0-None Auditory Disturbances: 0-None Visual Disturbances: 0-None Headache: 1-Very Mild CIWA-Ar Total Score: 2 S COWS - Scale Resting Pulse: 0= [place] 80 or Below Sweatin= No chills or Flushing Restless Observation: 0= Sits Still Pupil Size: 0= Normal to Room Light Bone or Joint Aches: 0= None Runny Nose/ Eye Tearin= None GI Upset > 30mins: 0= None Tremor Observation of Outstretched Hands: 1= Tremor [place], Not Seen Yawning Observation: 0= None Anxiety or Irritability: 0= None Goose Flesh Skin: 0=Smooth Skin COWS Score: 1 [facility] Progress Note (SOAP) Subjective: patient discharged yesterday however, patient remain on the detox unit today patient is alert oriented x 3 patient states that she is going to [facility] for aftercare 30 days supply of medications at the [facility] pharmacy respiratory clear lung bilaterally abdomen: obese round no rebound tenderness extremities full range of motion change discharge date from 08/26/19 to 08/27/10 due to patient physically exists on the detox unit Objective: 08/27/19 09:43 Vital Signs Temperature 98.3 F 08/27/19 06:43 Pulse Rate 78 08/27/19 06:43 Respiratory Rate 18 08/27/19 06:43 Blood Pressure 100/62 08/27/19 06:43 O2 Sat by Pulse Oximetry (%) Laboratory Last Values WBC 4.0 K/mm3 (4.0-10.0) 08/22/19 07:50 RBC 3.95 M/mm3 (3.60-5.2) 08/22/19 07:50 Hgb 12.1 GM/dL (10.7-15.3) 08/22/19 07:50 Hct 36.8 % (32.4-45.2) 08/22/19 07:50 MCV 93.1 fl (80-96) 08/22/19 07:50 MCH 30.6 pg (25.7-33.7) 08/22/19 07:50 MCHC 32.9 g/dl (32.0-36.0) 08/22/19 07:50 RDW 13.8 % (11.6-15.6) 08/22/19 07:50 Plt Count 244 K/MM3 (134-434) 08/22/19 07:50 MPV 9.1 fl (7.5-11.1) 08/22/19 07:50 Sodium 141 mmol/L (136-145) 08/22/19 07:50 Potassium 4.1 mmol/L (3.5-5.1) 08/22/19 07:50 Chloride 106 mmol/L (98-107) 08/22/19 07:50 Carbon Dioxide 26 mmol/L (21-32) 08/22/19 07:50 Anion Gap 8 MMOL/L (8-16) 08/22/19 07:50 BUN 18.0 mg/dL (7-18) 08/22/19 07:50 Creatinine 0.8 mg/dL (0.55-1.3) 08/22/19 07:50 Est GFR (CKD-EPI)AfAm 109.93 08/22/19 07:50 Est GFR (CKD-EPI)NonAf 94.85 08/22/19 07:50 Random Glucose 115 mg/dL (74-106) H 08/22/19 07:50 Calcium 8.1 mg/dL (8.5-10.1) L 08/22/19 07:50 Total Bilirubin 0.3 mg/dL (0.2-1) 08/22/19 07:50 AST 13 U/L (15-37) L 08/22/19 07:50 ALT 22 U/L (13-61) 08/22/19 07:50 Alkaline Phosphatase 73 U/L (45-117) 08/22/19 07:50 Total Protein 6.2 g/dl (6.4-8.2) L 08/22/19 07:50 Albumin 3.1 g/dl (3.4-5.0) L 08/22/19 07:50 POC Urine HCG, Qual Negative 08/21/19 01:48 Valproic Acid 39.2 ug/mL (50-100) L 08/24/19 07:50 RPR Titer Nonreactive (NONREACTIVE) 08/22/19 07:50 lab noted patient agrees to bringing in lab report and list of medication to aftercare Assessment: 08/27/19 09:44 alcohol and opiate withdrawal sx managed successfully Plan: after[facility] patient has the phone number and the address of [facility] as confirmed by the counselor
== END 2019-08-27 10:12 | disposition home or self-care (01) | DRG 773 ==
LOC: YASAS 23:07 → Y3N 08-21 01:40
PROVIDERS: ADMIT Allergy & Immunology; ATTEND Allergy & Immunology
PROC: HZ2ZZZZ Detoxification Services for Substance Abuse Treatment (ICD-10-PCS; principal; 2019-08-21)
DX: F10.230 Alcohol dependence with withdrawal, uncomplicated (principal); F11.23 Opioid dependence with withdrawal; F14.20 Cocaine dependence, uncomplicated; F12.20 Cannabis dependence, uncomplicated; F17.210 Nicotine dependence, cigarettes, uncomplicated; F31.9 Bipolar disorder, unspecified; G47.00 Insomnia, unspecified; E83.51 Hypocalcemia; J45.909 Unspecified asthma, uncomplicated; G43.909 Migraine, unspecified, not intractable, without status migrainosus; S09.8XXD Other specified injuries of head, subsequent encounter; W19.XXXD Unspecified fall, subsequent encounter
CPT/HCPCS: 36415; 73630-TC-LT; 80053; 80164; 81025; 85027; 86593; 93005; 93010

== ENCOUNTER 2019-08-21 15:04 | Emergency (ER) | payer OTHER ==
[2019-08-21 15:16] VITALS: BP 107/68; PULSE 67; TEMP 98.4; BMI 35.6
--- NOTE | 2019-08-21 15:16 | PDOC ---
Rapid Medical Evaluation Chief Complaint: Headache Time Seen by Provider: 08/21/19 15:11 Medical Evaluation: Allergies Allergy/AdvReac Type Severity Reaction Status Date / Time No Known Allergies Allergy Verified 08/21/19 15:11 08/21/19 15:11 I have performed a brief in-person evaluation of this patient. The patient presents with a chief complaint of: "nothing is bothering me today" . I am detoxing for alcohol and heroin. As per EMS they were called because pt c/o headache, s/p fall 3 days ago while inebriated. No headache now. Pt has not medical complaints today. The patient will proceed to the ED for further evaluation. Discharge Disposition - Diagnosis Evaluation by medical service required - Referrals - Patient Instructions - Post Discharge Activity
--- NOTE | 2019-08-21 15:27 | PDOC ---
History of Present Illness - General Chief Complaint: Headache Stated Complaint: Headache Time Seen by Provider: 08/21/19 15:11 Past History - Past Medical History Allergies/Adverse Reactions: Allergies Allergy/AdvReac Type Severity Reaction Status Date / Time No Known Allergies Allergy Verified 08/21/19 15:11 Home Medications: Ambulatory Orders Divalproex Sodium [Depakote] 500 mg PO BID 08/20/19 Fluoxetine HCl [Prozac] 60 mg PO DAILY 08/20/19 Quetiapine Fumarate [Seroquel] 100 mg PO TID 08/20/19 Trazodone HCl 150 mg PO HS 08/20/19 Anemia: No Asthma: Yes Cancer: No Cardiac Disorders: No CVA: No COPD: No CHF: No Dementia: No Diabetes: No GI Disorders: No Disorders: No HTN: Yes Hypercholesterolemia: No Kidney Stones: No Liver Disease: No Seizures: Yes (ETOH) Thyroid Disease: No Other medical history: RT SIDED SCIATICA - Reproductive History PID: No - Immunization History Immunization Up to Date: Yes - Psycho Social/Smoking Cessation Hx Smoking History: Current every day smoker Have you smoked in the past 12 months: Yes Number of Cigarettes Smoked Daily: 20 Information on smoking cessation initiated: No 'Breaking Loose' booklet given: 08/21/19 Hx Alcohol Use: No Drug/Substance Use Hx: Yes (HEROIN/ MARIJUANA/COCAINE) Substance Use Type: Alcohol, Cocaine, Heroin, Marijuana, Opiates Hx Substance Use Treatment: Yes Trauma Specific PMHX - Complaint Specific PMHX Arthritis: No *Physical Exam - Vital Signs Last Vital Signs Temp Pulse Resp BP Pulse Ox 98.4 F 67 17 107/68 97 08/21/19 15:12 08/21/19 15:12 08/21/19 15:12 08/21/19 15:12 08/21/19 15:12 Discharge - Discharge Information Clinical Impression/Diagnosis: Evaluation by medical service required - Follow up/Referral - Patient Discharge Instructions - Post Discharge Activity
--- NOTE | 2019-08-21 15:44 | PDOC ---
History of Present Illness - General Chief Complaint: Headache Stated Complaint: Headache Time Seen by Provider: 08/21/19 15:11 History Source: Patient - History of Present Illness Occurred: reports: other Pain Location: reports: head Method of Injury: Yes: fall Past History - Past Medical History Allergies/Adverse Reactions: Allergies Allergy/AdvReac Type Severity Reaction Status Date / Time No Known Allergies Allergy Verified 08/21/19 15:11 Home Medications: Ambulatory Orders Divalproex Sodium [Depakote] 500 mg PO BID 08/20/19 Fluoxetine HCl [Prozac] 60 mg PO DAILY 08/20/19 Quetiapine Fumarate [Seroquel] 100 mg PO TID 08/20/19 Trazodone HCl 150 mg PO HS 08/20/19 Anemia: No Asthma: Yes Cancer: No Cardiac Disorders: No CVA: No COPD: No CHF: No Dementia: No Diabetes: No GI Disorders: No Disorders: No HTN: Yes Hypercholesterolemia: No Kidney Stones: No Liver Disease: No Seizures: Yes (ETOH) Thyroid Disease: No Other medical history: RT SIDED SCIATICA - Reproductive History PID: No - Immunization History Immunization Up to Date: Yes - Psycho Social/Smoking Cessation Hx Smoking History: Current every day smoker Have you smoked in the past 12 months: Yes Number of Cigarettes Smoked Daily: 20 Information on smoking cessation initiated: No 'Breaking Loose' booklet given: 08/21/19 Hx Alcohol Use: No Drug/Substance Use Hx: Yes (HEROIN/ MARIJUANA/COCAINE) Substance Use Type: Alcohol, Cocaine, Heroin, Marijuana, Opiates Hx Substance Use Treatment: Yes Trauma Specific PMHX - Complaint Specific PMHX Arthritis: No Review of Systems - Review of Systems ABD/GI: No: Nausea, Vomiting Neurological: No: Headache, Numbness, Tingling, Weakness, Dizziness *Physical Exam - Vital Signs Last Vital Signs Temp Pulse Resp BP Pulse Ox 98.4 F 67 17 107/68 97 08/21/19 15:12 08/21/19 15:12 08/21/19 15:12 08/21/19 15:12 08/21/19 15:12 - Physical Exam General Appearance: Yes: Appropriately Dressed. No: Apparent Distress HEENT: positive: Normal Voice Neck: positive: Supple Respiratory/Chest: negative: Respiratory Distress Extremity: positive: Normal Inspection. negative: Tender, Swelling Integumentary: positive: Dry, Warm Neurologic: positive: Fully Oriented, Alert, Normal Mood/Affect, Motor Strength 03/12 ED Treatment Course - RADIOLOGY Radiology Studies Ordered: Category Date Time Status HEAD CT WITHOUT CONTRAST [CT] Stat CT Scan 08/21/19 15:38 Ordered Medical Decision Making - Medical Decision Making 08/21/19 15:41 38-year-old female, currently inpatient at [facility] for alcohol and heroin detox, sent in for CAT scan after patient mentioned that she fell striking head while intoxicated on the streets 3 days ago. Patient reports no headache dizziness nausea vomiting at this time and not on any blood thinners. Pt appearing and stable here with no focal deficits. CT head pending 08/21/19 16:19 CTH negative. Pt stable for return back to [facility] [place] Discharge - Discharge Information Problems reviewed: Yes Clinical Impression/Diagnosis: Evaluation by medical service required Head injury Qualifiers: Encounter type: initial encounter Qualified Code(s): S09.90XA - Unspecified injury of head, initial encounter Fall Qualifiers: Encounter type: initial encounter Qualified Code(s): W19.XXXA - Unspecified fall, initial encounter Condition: Good Disposition: HOME - Follow up/Referral - Patient Discharge Instructions Patient Printed Discharge Instructions: DI for Closed Head Injury Additional Instructions: Patient's head CT was normal today - Post Discharge Activity
[2019-08-23] MEDS ORDERED: DIVALPROEX SODIUM 500 MG TABLET E.C. PO SCH (22:00)
== END 2019-08-21 19:30 | disposition home or self-care (01) ==
LOC: JERFT 15:04
DX: Z00.00 Encounter for general adult medical examination without abnormal findings (principal); S09.8XXA Other specified injuries of head, initial encounter; W19.XXXA Unspecified fall, initial encounter; Y93.89 Activity, other specified; Y92.414 Local residential or business street as the place of occurrence of the external cause; Y99.8 Other external cause status; I10 Essential (primary) hypertension; G40.509 Epileptic seizures related to external causes, not intractable, without status epilepticus; J45.909 Unspecified asthma, uncomplicated; F11.10 Opioid abuse, uncomplicated; F10.10 Alcohol abuse, uncomplicated; F17.210 Nicotine dependence, cigarettes, uncomplicated
CPT/HCPCS: 70450-TC; 99281-25

== ENCOUNTER 2020-06-22 13:05 | Inpatient (IN) | payer OTHER ==
[2020-06-22 20:11] VITALS: BMI 38.9
--- NOTE | 2020-06-22 20:27 | HP ---
CIWA Score Nausea/Vomitin Muscle Tremors: 5 Anxiety: 3 Agitation: 4-Moderately Restless Paroxysmal Sweats: 2 Orientation: 0-Oriented Tacttile Disturbances: 0-None Auditory Disturbances: 0-None Visual Disturbances: 0-None Headache: 3-Moderate CIWA-Ar Total Score: 19 - Admission Criteria [facility] Guidelines: Admission for Medically Managed Detox: Requires at least one of the followin. CIWA greater than 12 2. Seizures within the past 24 hours 3. Delirium tremens within the past 24 hours 4. Hallucinations within the past 24 hours 5. Acute intervention needed for co occurring medical disorder 6. Acute intervention needed for co occurring psychiatric disorder 7. Severe withdrawal that cannot be handled at a lower level of care (continued vomiting, continued diarrhea, abnormal vital signs) requiring intravenous medication and/or fluids 8. Admitting History and Physical - Past Medical History ...LMP: 08/07/19 - Smoking History Smoking history: Current every day smoker Have you smoked in the past 12 months: Yes Aproximately how many cigarettes per day: 20 - Alcohol/Substance Use Hx Alcohol Use: No Admission ROS [facility] Chief Complaint: Seeking admission to detox from alcohol Allergies/Adverse Reactions: Allergies Allergy/AdvReac Type Severity Reaction Status Date / Time No Known Allergies Allergy Verified 06/22/20 21:04 History of Present Illness: 39 years old female with a long history of alcohol dependence (since age 14 years) is seeking admission to detox. Her last detoxification was for the period 04/04/2020 - 04/09/2020 and she reports that she relapsed the same day she was discharged. She reports drinking 4 pints of Vodka daily. She has medical history of asthma, hypertension, cataract (left eye), psych. history of depression, insomnia, bipolar disorder and anxiety. She reports suicide attempt at age 14 years and denies suicidal ideation at this time. 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 She is unemployed, homeless and denies any legal issues. - Ebola screening Have you traveled outside of the country in the last 21 days: No Have you had contact with anyone from an Ebola affected area: No Have you been sick,other than usual withdrawal symptoms: No Do you have a fever: No - Review of Systems Constitutional: Chills, Malaise, Night Sweats, Changes in sleep EENT: reports: No Symptoms Reported Respiratory: reports: No Symptoms reported Cardiac: reports: No Symptoms Reported GI: reports: Diarrhea (x 3), Nausea, Poor Appetite, Poor Fluid Intake, Abdominal cramping : reports: No Symptoms Reported Musculoskeletal: reports: Back Pain Integumentary: reports: Dryness, Flushing Neuro: reports: Headache, Tremors Endocrine: reports: No Symptoms Reported Hematology: reports: No Symptoms Reported Psychiatric: reports: Mood/Affect Appropiate, Orientated x3, Anxious Other Systems: Reviewed and Negative Patient History - Patient Medical History Hx Anemia: No Hx Asthma: Yes (Albuterol) Hx Chronic Obstructive Pulmonary Disease (COPD): No Hx Cancer: No Hx Cardiac Disorders: No Hx Congestive Heart Failure: No Hx Hypertension: Yes (Not on medication) Hx Hypercholesterolemia: No HX Cerebrovascular Accident: No Hx Seizures: Yes (Alcohol related) Hx Dementia: No Hx Diabetes: No Hx Gastrointestinal Disorders: No Hx Liver Disease: No Hx Genitourinary Disorders: No Hx Sexually Transmitted Disorders: No Hx Renal Disease (ESRD): No Hx Thyroid Disease: No Hx Human Immunodeficiency Virus (HIV): No (Negative 2020) Hx Hepatitis C: No Hx Depression: Yes Hx Suicide Attempt: No (Attempt at age 14, denies suicidal ideation at this time) Hx Bipolar Disorder: Yes Hx Schizophrenia: No - Patient Surgical History Past Surgical History: No Hx Neurologic Surgery: No Hx Cataract Extraction: No Hx Cardiac Surgery: No Hx Lung Surgery: No Hx Breast Surgery: No Hx Breast Biopsy: No Hx Abdominal Surgery: No Hx Appendectomy: No Hx Cholecystectomy: No Hx Genitourinary Surgery: No Hx Section: No Hx Orthopedic Surgery: No Anesthesia Reaction: No - PPD History Previous Implant?: Yes Documented Results: Negative w/proof Implanted On Prior [facility] Admission?: Yes Date: 08/23/19 PPD to be Administered?: Yes - Reproductive History Patient is a Female of Child Bearing Age (11 -55 yrs old): No Last Menstrual Period: 05/28/20 - Smoking Cessation Smoking history: Current every day smoker Have you smoked in the past 12 months: Yes Aproximately how many cigarettes per day: 20 Hx Chewing Tobacco Use: No Initiated information on smoking cessation: Yes 'Breaking Loose' booklet given: 06/22/20 - Substance & Tx. History Hx Alcohol Use: Yes Hx Substance Use: Yes Substance Use Type: Alcohol, Cocaine, Marijuana Hx Substance Use Treatment: Yes ([facility]) - Substances abused Alcohol Substance route: Oral Amount used: 4 Pints Vodka Age of first use: 14 Date of last use: 06/22/20 Admission Physical Exam [facility] - Vital Signs Vital Signs: Vital Signs - 24 hr 06/22/20 20:05 Temperature 97.4 F L Pulse Rate 66 Respiratory 18 Rate Blood Pressure 128/76 - Physical General Appearance: Yes: Moderate Distress, Tremorous, Irritable, Anxious HEENTM: Yes: Within Normal Limits Respiratory: Yes: Lungs Clear, Normal Breath Sounds, No Respiratory Distress Neck: Yes: Within Normal Limits Breast: Yes: Breast Exam Deferred Cardiology: Yes: Within Normal Limits Abdominal: Yes: Normal Bowel Sounds, Protuberent Back: Yes: Normal Inspection Musculoskeletal: Yes: Back pain Extremities: Yes: Tremors, Other (bilateral leg swelling) Neurological: Yes: Within Normal Limits, Alert Integumentary: Yes: Warm Lymphatic: Yes: Within Normal Limits - Diagnostic (1) Depression Current Visit: Yes Status: Chronic (2) Alcohol dependence with withdrawal, uncomplicated Current Visit: Yes Status: Acute Comment: . (3) Cocaine dependence Current Visit: Yes Status: Chronic (4) Nicotine dependence Current Visit: Yes Status: Chronic Qualifiers: Nicotine product type: cigarettes Substance use status: in withdrawal Qualified Code(s): F17.213 - Nicotine dependence, cigarettes, with withdrawal Comment: . (5) Asthma Current Visit: No Status: Chronic (6) Cataract, left eye Current Visit: Yes Status: Chronic Qualifiers: Cataract type: unspecified Qualified Code(s): H26.9 - Unspecified cataract (7) Marijuana dependence Current Visit: Yes Status: Chronic Comment: . (8) Alcohol related seizure Current Visit: Yes Status: Chronic (9) Hypertension Current Visit: Yes Status: Chronic Qualifiers: Hypertension type: essential hypertension Qualified Code(s): I10 - Essential (primary) hypertension Cleared for Admission [facility] - Detox or Rehab [facility] Level of Care: Medically Managed Detox Regimen/Protocol: Librium Claeared for Rehab Admission: No Breathalyzer - Breathalyzer Breathalyzer: 0 Urine Drug Screen - Test Device Lot number: [id number] Expiration date: 07/08/22 - Control Is test valid?: Yes - Results Drug screen NEGATIVE: No Urine drug screen results: THC-Marijuana, KELLEY-Cocaine, BZO-Benzodiazepines Inpatient Rehab Admission - Rehab Decision to Admit Inpatient rehab admission?: No
[2020-06-22] MEDS ORDERED: hydrOXYzine PAMOATE 25 MG CAPSULE (FP) PO PRN (20:38)
[2020-06-22] MEDS ORDERED: NICOTINE POLACRILEX 2 MG GUM BUC PRN (20:38)
[2020-06-22] MEDS ORDERED: ONDANSETRON *ODT* 4 MG TABLET SL PRN (20:38)
[2020-06-22] MEDS ORDERED: ACETAMINOPHEN 325 MG TABLET (FP) PO PRN ×2 (20:38)
[2020-06-22] MEDS ORDERED: MAGNESIUM HYDROX 2400MG/30ML ORAL SUSPENSION 30 ML CUP PO PRN (20:38)
[2020-06-22] MEDS ORDERED: MENTHOL/PHENOL 1 EACH UD MM PRN (20:38)
[2020-06-22] MEDS ORDERED: BISMUTH SUBSALICYLATE 524 MG/30 ML UD PO PRN (20:38)
[2020-06-22] MEDS ORDERED: MAGNESIUM CITRATE 300 ML BOTTLE PO PRN (20:38)
[2020-06-22] MEDS ORDERED: MAG HYDROX/AL HYDROX/SIMETH 30 ML UNIT-DOSE CUP PO PRN (20:38)
[2020-06-22] MEDS ORDERED: chlordiazePOXIDE HCL 25 MG CAPSULE PO PRN (20:38)
[2020-06-22] MEDS: chlordiazePOXIDE HCL 25 MG CAPSULE PO SCH (22:35)
[2020-06-22] MEDS: MELATONIN 5 MG TABLETS PO SCH (22:36)
[2020-06-22] MEDS: THIAMINE HCL 100 MG TABLET (FP) PO SCH (22:36)
[2020-06-23] MEDS: chlordiazePOXIDE HCL 25 MG CAPSULE PO SCH (06:39)
[2020-06-23] MEDS: IBUPROFEN 400 MG TABLET (FP) PO PRN ×2 (06:40→22:41)
--- NOTE | 2020-06-23 09:12 | PN ---
S CIWA - CIWA Score Nausea/Vomitin-Mild Nausea/No Vomiting Muscle Tremors: 3 Anxiety: 4-Mod. Anxious/Guarded Agitation: 2 Paroxysmal Sweats: 1-Minimal Palms Moist Orientation: 0-Oriented Tacttile Disturbances: 0-None Auditory Disturbances: 0-None Visual Disturbances: 1-Very Mild Sensitivity Headache: 2-Mild CIWA-Ar Total Score: 14 BHS Progress Note (SOAP) Subjective: 39 years old obese female admitted on 06/22/20 for alcohol withdrawal sx management treating with librium detox regiment agitative irritable anxiousness requests to be seen by a home health registered nurse for nutritional evaluation home health registered nurse referral Objective: 06/23/20 09:10 Vital Signs - 24 hr 06/22/20 06/22/20 06/22/20 20:05 21:10 21:17 Temperature 97.4 F L 97.4 F L Pulse Rate 66 66 Respiratory 18 18 Rate Blood Pressure 128/76 128/76 O2 Sat by Pulse 95 Oximetry (%) 06/22/20 06/23/20 22:01 07:31 Temperature 97.3 F L 97.3 F L Pulse Rate 77 66 Respiratory 18 18 Rate Blood Pressure 133/76 123/72 O2 Sat by Pulse 99 97 Oximetry (%) 06/23/20 09:10 lb pending Assessment: 06/23/20 09:10 alcohol withdrawal obesity 06/23/20 09:12 anxiety Plan: librium regiment home health registered nurse referral vistaril 50 mg po
[2020-06-23] MEDS ORDERED: chlordiazePOXIDE HCL 25 MG CAPSULE PO SCH (10:00)
[2020-06-23 10:37] LABS: BLOOD UREA NITROGEN 17.9 mg/dL (7-18); CALCIUM 7.9 mg/dL (8.5-10.1); CREATININE 0.8 mg/dL (0.55-1.3); POTASSIUM 3.8 mmol/L (3.5-5.1); TOT PROT 6.5 g/dl (6.4-8.2)
[2020-06-23 10:41] LABS: BILIRUBIN,TOTAL 0.3 mg/dL (0.2-1)
[2020-06-23 10:47] LABS: HEMATOCRIT 36.3 % (32.4-45.2); HEMOGLOBIN 11.9 GM/dL (10.7-15.3); MCH 29.7 pg (25.7-33.7); MCHC 32.7 g/dl (32.0-36.0); MEAN CELL VOLUME 90.9 fl (80-96); MEAN PLT VOLUME 9.3 fl (7.5-11.1); PLATELET COUNT 202 K/MM3 (134-434); RBC 3.99 M/mm3 (3.60-5.2); RDW 14.6 % (11.6-15.6); WHITE BLOOD COUNT 6.2 K/mm3 (4.0-10.0)
[2020-06-23] MEDS ORDERED: hydrOXYzine PAMOATE 25 MG CAPSULE (FP) PO PRN (11:00)
[2020-06-23] MEDS: chlordiazePOXIDE HCL 10 MG CAPSULE PO SCH ×3 (11:34→22:36)
[2020-06-23] MEDS: PRENATAL VITAMINS W/ FOLIC ACID TABLET (FP) PO SCH (11:35)
[2020-06-23] MEDS: NICOTINE 21 MG/24 HOURS TOPICAL PATCH TD SCH (11:35)
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
--- NOTE | 2020-06-23 18:53 | EKG ---
Test Reason : Blood Pressure : / mmHG Vent. Rate : 066 BPM Atrial Rate : 066 BPM P-R Int : 150 ms QRS Dur : 086 ms QT Int : 424 ms P-R-T Axes : 048 033 052 degrees QTc Int : 444 ms NORMAL SINUS RHYTHM NORMAL ECG WHEN COMPARED WITH ECG OF 21-AUG-2019 02:14, NO SIGNIFICANT CHANGE WAS FOUND Confirmed by MD YING MOYSES ([id number]) on 06/23/2020 6:53:05 PM Referred By: Confirmed By:KLEBER YING MD
[2020-06-23] MEDS: DIVALPROEX SODIUM 500 MG TABLET E.C. PO SCH (22:36)
[2020-06-23] MEDS: QUEtiapine FUMARATE 200 MG TABLET PO SCH (22:36)
[2020-06-23] MEDS: THIAMINE HCL 100 MG TABLET (FP) PO SCH (22:36)
[2020-06-23] MEDS: MELATONIN 5 MG TABLETS PO SCH (22:36)
[2020-06-23] MEDS: traZODone HCL 100 MG TABLET (FP) PO PRN (22:41)
[2020-06-23] MEDS: METHOCARBAMOL 500 MG TABLET PO PRN (22:43)
[2020-06-24] MEDS: chlordiazePOXIDE HCL 25 MG CAPSULE PO SCH ×4 (06:47→22:12)
--- NOTE | 2020-06-24 09:37 | PN ---
[facility] CIWA - CIWA Score Nausea/Vomitin-No Nausea/No Vomiting Muscle Tremors: 1-None Visible, but [place] Anxiety: 2 Agitation: 4-Moderately Restless Paroxysmal Sweats: No Perspiration Orientation: 0-Oriented Tacttile Disturbances: 0-None Auditory Disturbances: 0-None Visual Disturbances: 2-Mild Sensitivity Headache: 0-None Present CIWA-Ar Total Score: 9 BHS Progress Note (SOAP) Subjective: 39 years old female admitted on 06/22/20 for alcohol withdrawal sx management treating with librium detox regiment right big toe pain on weight bearing wheelchair for ambulation assistance Objective: 06/24/20 09:34 Vital Signs - 24 hr 06/23/20 06/23/20 06/23/20 13:00 17:01 20:41 Temperature 98.6 F 96.9 F L 97.3 F L Pulse Rate 78 71 62 Respiratory 18 18 18 Rate Blood Pressure 108/67 98/63 123/76 O2 Sat by Pulse 98 98 Oximetry (%) 06/24/20 07:01 Temperature 98.4 F Pulse Rate 64 Respiratory 18 Rate Blood Pressure 94/61 O2 Sat by Pulse 98 Oximetry (%) Laboratory Tests 06/22/20 06/23/20 06/23/20 21:02 08:00 08:00 WBC 6.2 RBC 3.99 Hgb 11.9 Hct 36.3 MCV 90.9 MCH 29.7 MCHC 32.7 RDW 14.6 Plt Count 202 D MPV 9.3 Sodium Potassium Chloride Carbon Dioxide Anion Gap BUN Creatinine Est GFR (CKD-EPI)AfAm Est GFR (CKD-EPI)NonAf Random Glucose Calcium Total Bilirubin AST ALT Alkaline Phosphatase Total Protein Albumin POC Urine HCG, Qual Negative Syphilis Serology Non-reactive 06/23/20 08:00 WBC RBC Hgb Hct MCV MCH MCHC RDW Plt Count MPV Sodium 142 Potassium 3.8 Chloride 108 H Carbon Dioxide 26 Anion Gap 9 BUN 17.9 Creatinine 0.8 Est GFR (CKD-EPI)AfAm 109.16 Est GFR (CKD-EPI)NonAf 94.18 Random Glucose 94 Calcium 7.9 L Total Bilirubin 0.3 AST 20 ALT 27 Alkaline Phosphatase 80 Total Protein 6.5 Albumin 3.0 L POC Urine HCG, Qual Syphilis Serology lab noted Assessment: 06/24/20 09:36 alcohol withdrawal 06/24/20 09:36 right big toe pain on weight bearing from bumping into door Plan: librium regiment right foot x ray wheelchair for ambulation aid
[2020-06-24] MEDS: PRENATAL VITAMINS W/ FOLIC ACID TABLET (FP) PO SCH (10:36)
[2020-06-24] MEDS: FLUoxetine HCL 20 MG CAPSULE PO SCH (10:36)
[2020-06-24] MEDS: DIVALPROEX SODIUM 500 MG TABLET E.C. PO SCH ×2 (10:36→22:13)
[2020-06-24] MEDS: NICOTINE 21 MG/24 HOURS TOPICAL PATCH TD SCH (10:37)
[2020-06-24] MEDS: THIAMINE HCL 100 MG TABLET (FP) PO SCH (22:13)
[2020-06-24] MEDS: QUEtiapine FUMARATE 200 MG TABLET PO SCH (22:13)
[2020-06-24] MEDS: traZODone HCL 100 MG TABLET (FP) PO PRN (22:13)
[2020-06-24] MEDS: MELATONIN 5 MG TABLETS PO SCH (22:14)
[2020-06-24] MEDS: METHOCARBAMOL 500 MG TABLET PO PRN (22:16)
[2020-06-25] MEDS ORDERED: chlordiazePOXIDE HCL 10 MG CAPSULE PO PRN
[2020-06-25] MEDS: chlordiazePOXIDE HCL 10 MG CAPSULE PO SCH ×4 (06:11→22:24)
--- NOTE | 2020-06-25 09:25 | PN ---
S CIWA - CIWA Score Nausea/Vomitin-No Nausea/No Vomiting Muscle Tremors: 1-None Visible, but [place] Anxiety: 1-Mildly Anxious Agitation: 1-Slight > Activity Paroxysmal Sweats: No Perspiration Orientation: 0-Oriented Tacttile Disturbances: 0-None Auditory Disturbances: 0-None Visual Disturbances: 2-Mild Sensitivity Headache: 1-Very Mild CIWA-Ar Total Score: 6 BHS Progress Note (SOAP) Subjective: 39 years old grossly obese female admitted on 06/22/20 for alcohol withdrawal sx management treating with librium detox regiment right foot great toe negative pathology as per x ray encourage physical mobility and weight loss encourage utilizing wheelchair for mobility if necessary Objective: 06/25/20 09:23 Vital Signs - 24 hr 06/24/20 06/24/20 06/24/20 13:07 16:59 21:06 Temperature 98.6 F 98.4 F 98.4 F Pulse Rate 78 67 65 Respiratory 18 16 18 Rate Blood Pressure 120/69 91/57 L 108/62 O2 Sat by Pulse 98 98 Oximetry (%) 06/25/20 06:31 Temperature 97.1 F L Pulse Rate 59 L Respiratory 18 Rate Blood Pressure 98/61 O2 Sat by Pulse 96 Oximetry (%) Laboratory Tests 06/22/20 06/23/20 06/23/20 21:02 08:00 08:00 WBC 6.2 RBC 3.99 Hgb 11.9 Hct 36.3 MCV 90.9 MCH 29.7 MCHC 32.7 RDW 14.6 Plt Count 202 D MPV 9.3 Sodium Potassium Chloride Carbon Dioxide Anion Gap BUN Creatinine Est GFR (CKD-EPI)AfAm Est GFR (CKD-EPI)NonAf Random Glucose Calcium Total Bilirubin AST ALT Alkaline Phosphatase Total Protein Albumin POC Urine HCG, Qual Negative Syphilis Serology Non-reactive 06/23/20 08:00 WBC RBC Hgb Hct MCV MCH MCHC RDW Plt Count MPV Sodium 142 Potassium 3.8 Chloride 108 H Carbon Dioxide 26 Anion Gap 9 BUN 17.9 Creatinine 0.8 Est GFR (CKD-EPI)AfAm 109.16 Est GFR (CKD-EPI)NonAf 94.18 Random Glucose 94 Calcium 7.9 L Total Bilirubin 0.3 AST 20 ALT 27 Alkaline Phosphatase 80 Total Protein 6.5 Albumin 3.0 L POC Urine HCG, Qual Syphilis Serology l 06/25/20 09:24 covid pending Assessment: 06/25/20 09:24 alcohol withdrawal obesity Plan: librium regiment negative right foot great toe pathology
[2020-06-25] MEDS: NICOTINE 21 MG/24 HOURS TOPICAL PATCH TD SCH (10:46)
[2020-06-25] MEDS: DIVALPROEX SODIUM 500 MG TABLET E.C. PO SCH ×2 (10:46→22:25)
[2020-06-25] MEDS: FLUoxetine HCL 20 MG CAPSULE PO SCH (10:47)
[2020-06-25] MEDS: PRENATAL VITAMINS W/ FOLIC ACID TABLET (FP) PO SCH (10:47)
[2020-06-25] MEDS: MELATONIN 5 MG TABLETS PO SCH (22:24)
[2020-06-25] MEDS: QUEtiapine FUMARATE 200 MG TABLET PO SCH (22:24)
[2020-06-25] MEDS: THIAMINE HCL 100 MG TABLET (FP) PO SCH (22:24)
[2020-06-25] MEDS: traZODone HCL 100 MG TABLET (FP) PO PRN (22:24)
[2020-06-25] MEDS: METHOCARBAMOL 500 MG TABLET PO PRN (22:25)
[2020-06-26] MEDS: chlordiazePOXIDE HCL 10 MG CAPSULE PO SCH ×2 (06:17→18:28)
[2020-06-26] MEDS: PRENATAL VITAMINS W/ FOLIC ACID TABLET (FP) PO SCH (09:37)
[2020-06-26] MEDS: DIVALPROEX SODIUM 500 MG TABLET E.C. PO SCH ×2 (09:37→22:43)
[2020-06-26] MEDS: NICOTINE 21 MG/24 HOURS TOPICAL PATCH TD SCH (09:37)
[2020-06-26] MEDS: FLUoxetine HCL 20 MG CAPSULE PO SCH (09:37)
[2020-06-26] MEDS: METHOCARBAMOL 500 MG TABLET PO PRN ×2 (09:53→22:45)
--- NOTE | 2020-06-26 10:15 | PN ---
S CIWA - CIWA Score Nausea/Vomitin-No Nausea/No Vomiting Muscle Tremors: 1-None Visible, but [place] Anxiety: 1-Mildly Anxious Agitation: 0-Normal Activity Paroxysmal Sweats: No Perspiration Orientation: 0-Oriented Tacttile Disturbances: 0-None Auditory Disturbances: 0-None Visual Disturbances: 1-Very Mild Sensitivity Headache: 0-None Present CIWA-Ar Total Score: 3 BHS Progress Note (SOAP) Subjective: 39 years old obese female was admitted on 06/22/20 for alcohol withdrawal sx management treating with librium detox regiment feels better today less tremor mild anxiety right foot great toe bump into door negative x ray requests cane for ambulation to aftercare at [facility] Objective: 06/26/20 10:15 Vital Signs - 24 hr 06/25/20 06/25/20 06/25/20 13:20 17:10 20:52 Temperature 97.1 F L 97.1 F L 97.3 F L Pulse Rate 75 73 68 Respiratory 20 18 18 Rate Blood Pressure 98/53 L 101/64 96/64 O2 Sat by Pulse 95 95 99 Oximetry (%) 06/26/20 06/26/20 06/26/20 06:15 08:33 10:03 Temperature 98.2 F 97.9 F 97.9 F Pulse Rate 70 71 70 Respiratory 20 18 18 Rate Blood Pressure 100/55 L 84/55 L 107/69 O2 Sat by Pulse 98 Oximetry (%) Laboratory Tests 06/22/20 06/22/20 06/23/20 20:39 21:02 08:00 WBC RBC Hgb Hct MCV MCH MCHC RDW Plt Count MPV Sodium Potassium Chloride Carbon Dioxide Anion Gap BUN Creatinine Est GFR (CKD-EPI)AfAm Est GFR (CKD-EPI)NonAf Random Glucose Calcium Total Bilirubin AST ALT Alkaline Phosphatase Total Protein Albumin POC Urine HCG, Qual Negative Syphilis Serology Non-reactive COVID-19 (ABHI) Not detected 06/23/20 06/23/20 08:00 08:00 WBC 6.2 RBC 3.99 Hgb 11.9 Hct 36.3 MCV 90.9 MCH 29.7 MCHC 32.7 RDW 14.6 Plt Count 202 D MPV 9.3 Sodium 142 Potassium 3.8 Chloride 108 H Carbon Dioxide 26 Anion Gap 9 BUN 17.9 Creatinine 0.8 Est GFR (CKD-EPI)AfAm 109.16 Est GFR (CKD-EPI)NonAf 94.18 Random Glucose 94 Calcium 7.9 L Total Bilirubin 0.3 AST 20 ALT 27 Alkaline Phosphatase 80 Total Protein 6.5 Albumin 3.0 L POC Urine HCG, Qual Syphilis Serology COVID-19 (ABHI) lab noted Assessment: 06/26/20 10:15 alcohol withdrawal Plan: librium regiment
--- NOTE | 2020-06-26 14:32 | PN ---
[facility] Progress Note Note: Psychiatry Attending's note : Scripts needed. Chart reviewed. Medications revisited. Noted orders for : depakote 500 mg po bid seroquel 200 mg po hs prozac 40 mg po daily No adverse effects. qc scientist Megan [place]'s note of 06/24/20 : read and appreciated. Scripts for the three medications are sent electronically to [facility]. With patient's consent (verbal).
--- NOTE | 2020-06-26 21:21 | PN ---
[facility] Progress Note Note: Psychiatry Attending's note (follow-up): Met with patient at bedside. In the presence of female staff Holly. Patient is inform patient of availability of scripts. Now at [facility]. She endorses her medications as well tolerated. Medications confirmed. Consent granted to
[2020-06-26] MEDS: QUEtiapine FUMARATE 200 MG TABLET PO SCH (22:43)
[2020-06-26] MEDS: traZODone HCL 100 MG TABLET (FP) PO PRN (22:43)
[2020-06-26] MEDS: THIAMINE HCL 100 MG TABLET (FP) PO SCH (22:43)
[2020-06-26] MEDS: MELATONIN 5 MG TABLETS PO SCH (22:43)
[2020-06-27] MEDS ORDERED: chlordiazePOXIDE HCL 10 MG CAPSULE PO ONE (05:00)
--- NOTE | 2020-06-27 08:55 | DS ---
[facility] Detox Discharge Summary Admission Date: 06/22/20 Discharge Date: 06/27/20 - History Present History: Alcohol Dependence Additional Comments: 39 years old female was admitted on 06/22/20 for alcohol withdrawal sx management treated with librium detox regiment seen by psychiatrist cristiane knight and [place] ms burnett has completed the librium regiment and is tolerated well mr burnett is committed to go to [facility] for alcohol abuse treatment transportation had been arranged mr burnett reports right great toe pump into door x ray of right foot negative wheelchair / cane offered for navigating on the detox unit General Appearance: Yes: no Distress, mild Tremorous, Anxious to step into next level of alcohol treatment HEENTM: Yes: Within Normal Limits Respiratory: Yes: Lungs Clear, Normal Breath Sounds, No Respiratory Distress Neck: Yes: Within Normal Limits Breast: Yes: Breast Exam Deferred Cardiology: Yes: Within Normal Limits Abdominal: Yes: Normal Bowel Sounds, Protuberent Back: Yes: Normal Inspection Musculoskeletal: Yes: chronic Back pain Extremities: Yes: mild Tremors, no legs swelling noted Neurological: Yes: Within Normal Limits, Alert Integumentary: Yes: Warm Lymphatic: Yes: Within Normal Limits Pertinent Past History: time for discharge 35 minutes discussing cigarette smoking related asthma episodes - Physical Exam Results Vital Signs: Vital Signs Temperature 98 F 06/27/20 06:52 Pulse Rate 80 06/27/20 06:52 Respiratory Rate 16 06/27/20 06:52 Blood Pressure 100/59 L 06/27/20 06:52 O2 Sat by Pulse Oximetry (%) 98 06/27/20 06:52 Pertinent Admission Physical Exam Findings: alcohol withdrawal Vital Signs - 24 hr 06/26/20 06/26/20 06/26/20 10:03 12:40 16:57 Temperature 97.9 F 98.2 F 97.3 F L Pulse Rate 70 68 69 Respiratory 18 18 17 Rate Blood Pressure 107/69 112/59 L 95/61 O2 Sat by Pulse 98 Oximetry (%) 06/26/20 06/27/20 21:19 06:52 Temperature 97.5 F L 98 F Pulse Rate 66 80 Respiratory 17 16 Rate Blood Pressure 105/69 100/59 L O2 Sat by Pulse 98 98 Oximetry (%) Laboratory Tests 06/22/20 06/22/20 06/23/20 20:39 21:02 08:00 WBC RBC Hgb Hct MCV MCH MCHC RDW Plt Count MPV Sodium Potassium Chloride Carbon Dioxide Anion Gap BUN Creatinine Est GFR (CKD-EPI)AfAm Est GFR (CKD-EPI)NonAf Random Glucose Calcium Total Bilirubin AST ALT Alkaline Phosphatase Total Protein Albumin POC Urine HCG, Qual Negative Syphilis Serology Non-reactive COVID-19 (ABHI) Not detected 06/23/20 06/23/20 08:00 08:00 WBC 6.2 RBC 3.99 Hgb 11.9 Hct 36.3 MCV 90.9 MCH 29.7 MCHC 32.7 RDW 14.6 Plt Count 202 D MPV 9.3 Sodium 142 Potassium 3.8 Chloride 108 H Carbon Dioxide 26 Anion Gap 9 BUN 17.9 Creatinine 0.8 Est GFR (CKD-EPI)AfAm 109.16 Est GFR (CKD-EPI)NonAf 94.18 Random Glucose 94 Calcium 7.9 L Total Bilirubin 0.3 AST 20 ALT 27 Alkaline Phosphatase 80 Total Protein 6.5 Albumin 3.0 L POC Urine HCG, Qual Syphilis Serology COVID-19 (ABHI) lab noted encourage calcium rich food - Treatment Hospital Course: Detox Protocol Followed, Detoxed Safely, Responded well, Discharged Condition Good, Rehab Referral Accepted Patient has Accepted a Rehab Referral to: [facility] - Medication Discharge Medications: Ambulatory Orders Fluoxetine HCl [Prozac] 60 mg PO DAILY 08/20/19 Quetiapine Fumarate [Seroquel] 200 mg PO HS 08/20/19 Trazodone HCl 150 mg PO HS 08/20/19 Divalproex [Depakote -] 500 mg PO BID #60 tablet.ec 08/26/19 Divalproex [Depakote -] 500 mg PO BID #60 tablet.ec 06/26/20 Fluoxetine HCl [Prozac] 40 mg PO DAILY #30 cap 06/26/20 Quetiapine Fumarate [Seroquel -] 200 mg PO HS #30 tab 06/26/20 - Diagnosis (1) Alcohol dependence with withdrawal, uncomplicated Status: Acute (2) Hypertension Status: Chronic Qualifiers: Hypertension type: essential hypertension Qualified Code(s): I10 - Essential (primary) hypertension (3) Nicotine dependence Status: Acute Qualifiers: Nicotine product type: cigarettes Substance use status: in withdrawal Qualified Code(s): F17.213 - Nicotine dependence, cigarettes, with withdrawal (4) Asthma Status: Chronic Qualifiers: Asthma severity: mild Asthma persistence: intermittent Asthma complication type: with status asthmaticus Qualified Code(s): J45.22 - Mild intermittent asthma with status asthmaticus (5) Sciatica Status: Chronic Qualifiers: Laterality: right Qualified Code(s): M54.31 - Sciatica, right side (6) Bipolar II disorder Status: Suspected - AMA Did Patient Leave Against Medical Advice: No CIWA Score - CIWA Score Nausea/Vomitin-No Nausea/No Vomiting Muscle Tremors: 1-None Visible, but [place] Anxiety: 0-No Anxiety, at Ease Agitation: 0-Normal Activity Paroxysmal Sweats: No Perspiration Orientation: 0-Oriented Tacttile Disturbances: 0-None Auditory Disturbances: 0-None Visual Disturbances: 0-None Headache: 0-None Present CIWA-Ar Total Score: 1
[2020-06-27 09:07] VITALS: BP 101/69; PULSE 74; TEMP 98.6
[2020-06-27] MEDS: NICOTINE 21 MG/24 HOURS TOPICAL PATCH TD SCH (09:53)
[2020-06-27] MEDS: PRENATAL VITAMINS W/ FOLIC ACID TABLET (FP) PO SCH (09:53)
[2020-06-27] MEDS: DIVALPROEX SODIUM 500 MG TABLET E.C. PO SCH (09:53)
[2020-06-27] MEDS: FLUoxetine HCL 20 MG CAPSULE PO SCH (09:53)
== END 2020-06-27 09:35 | disposition home or self-care (01) | DRG 774 ==
LOC: YASAS 13:05 → Y3N 20:57
PROVIDERS: ADMIT Allergy & Immunology; ATTEND Allergy & Immunology
PROC: HZ2ZZZZ Detoxification Services for Substance Abuse Treatment (ICD-10-PCS; principal; 2020-06-22)
DX: F10.230 Alcohol dependence with withdrawal, uncomplicated (principal); F14.20 Cocaine dependence, uncomplicated; F12.20 Cannabis dependence, uncomplicated; F17.210 Nicotine dependence, cigarettes, uncomplicated; F19.282 Other psychoactive substance dependence with psychoactive substance-induced sleep disorder; F31.81 Bipolar II disorder; F39 Unspecified mood [affective] disorder; I10 Essential (primary) hypertension; J45.909 Unspecified asthma, uncomplicated; G40.509 Epileptic seizures related to external causes, not intractable, without status epilepticus; M54.31 Sciatica, right side; H26.9 Unspecified cataract; Z62.810 Personal history of physical and sexual abuse in childhood; E66.9 Obesity, unspecified; Z68.39 Body mass index [BMI] 39.0-39.9, adult; Z56.0 Unemployment, unspecified; Z59.0 Homelessness; S99.921A Unspecified injury of right foot, initial encounter; W22.8XXA Striking against or struck by other objects, initial encounter; Y93.89 Activity, other specified; Y92.239 Unspecified place in hospital as the place of occurrence of the external cause; Y99.8 Other external cause status; Z99.89 Dependence on other enabling machines and devices
CPT/HCPCS: 36415; 73630-TC-RT-FY; 80053; 80164; 81025; 85027; 86780; 93005; 93010; U0003

== ENCOUNTER 2023-04-24 03:59 | Inpatient (IN) | payer OTHER ==
[2023-04-24 06:12] VITALS: BMI 34.4
[2023-04-24] MEDS ORDERED: methaDONE HCL 10 MG TABLET (FOR DETOX USE ONLY) PO ONE (09:41)
[2023-04-24] MEDS ORDERED: POLYETHYLENE GLYCOL (HEALTHYLAX) 3350 17 GM PACKET PO PRN (09:41)
[2023-04-24] MEDS ORDERED: NICOTINE 10 MG CARTRIDGE (INHALER) IH PRN (09:41)
[2023-04-24] MEDS ORDERED: DICYCLOMINE HCL 10 MG CAPSULE PO PRN (09:41)
[2023-04-24] MEDS ORDERED: LOPERAMIDE HCL 2 MG CAPSULE PO PRN (09:41)
[2023-04-24] MEDS ORDERED: cloNIDine HCL 0.1 MG TABLET PO PRN (09:41)
[2023-04-24] MEDS ORDERED: BENZONATATE 200 MG CAPSULE PO PRN (09:41)
[2023-04-24] MEDS ORDERED: BENZOCAINE/MENTHOL (CHLORASEPTIC ) LOZENGE MM PRN (09:41)
[2023-04-24] MEDS ORDERED: NALOXONE HCL 0.4 MG/ML VIAL IM PRN (09:41)
[2023-04-24] MEDS ORDERED: diazePAM 5 MG TABLET PO ONE (09:41)
[2023-04-24] MEDS ORDERED: NALOXONE HCL (KLOXXADO) 8 MG SPRAY NS PRN (09:41)
[2023-04-24] MEDS ORDERED: ONDANSETRON *ODT* 4 MG TABLET SL PRN (09:41)
[2023-04-24] MEDS ORDERED: MAG HYDROX/AL HYDROX/SIMETH 30 ML UNIT-DOSE CUP PO PRN (09:41)
[2023-04-24] MEDS ORDERED: BISMUTH SUBSALICYLATE 524 MG/30 ML PO PRN (09:41)
[2023-04-24] MEDS ORDERED: guaiFENesin 600 MG TABLET.ER (FP) PO PRN (09:41)
[2023-04-24] MEDS ORDERED: MAGNESIUM HYDROX 2400MG/30ML ORAL SUSPENSION 30 ML CUP PO PRN (09:41)
[2023-04-24] MEDS ORDERED: diazePAM 5 MG TABLET PO PRN (09:41)
[2023-04-24] MEDS ORDERED: NICOTINE POLACRILEX 4 MG GUM BUC PRN (09:41)
[2023-04-24] MEDS ORDERED: ACETAMINOPHEN 325 MG TABLET (FP) PO PRN (09:41)
[2023-04-24] MEDS ORDERED: SENNOSIDES 8.6MG TABLET (FP) PO PRN (09:45)
[2023-04-24] MEDS ORDERED: FAMOTIDINE 20 MG TABLET PO SCH (10:00)
[2023-04-24] MEDS ORDERED: diazePAM 5 MG TABLET ONE ×2 (10:40→10:43)
[2023-04-24] MEDS ORDERED: NICOTINE 21 MG/24 HOURS TOPICAL PATCH ONE (10:40)
[2023-04-24] MEDS ORDERED: PRENATAL VITAMINS W/ FOLIC ACID TABLET (FP) PO ONE (10:41)
[2023-04-24] MEDS ORDERED: methaDONE HCL 10 MG TABLET (FOR DETOX USE ONLY) ONE (10:41)
[2023-04-24] MEDS: NICOTINE 21 MG/24 HOURS TOPICAL PATCH TD SCH (10:47)
[2023-04-24] MEDS: PRENATAL VITAMINS W/ FOLIC ACID TABLET (FP) PO SCH (10:47)
[2023-04-24] MEDS ORDERED: diazePAM 5 MG TABLET PO SCH (11:00)
[2023-04-24] MEDS ORDERED: ONDANSETRON *ODT* 4 MG TABLET ONE (11:08)
[2023-04-24] MEDS: FAMOTIDINE 20 MG TABLET PO SCH ×4 (13:53→23:08)
[2023-04-24] MEDS ORDERED: FLUoxetine HCL 20 MG CAPSULE PO STA (16:20)
[2023-04-24] MEDS ORDERED: hydrOXYzine PAMOATE 50 MG CAPSULE (FP) PO PRN (16:21)
[2023-04-24] MEDS: diazePAM 5 MG TABLET PO SCH ×2 (17:36→22:27)
[2023-04-24] MEDS: THIAMINE HCL 100 MG TABLET (FP) PO SCH (22:28)
[2023-04-24] MEDS: DIVALPROEX SODIUM 500 MG TABLET E.C. PO SCH (22:30)
[2023-04-24] MEDS: traZODone HCL 50 MG TABLET (FP) PO SCH (22:30)
[2023-04-24] MEDS: QUEtiapine FUMARATE 200 MG TABLET PO SCH (22:30)
[2023-04-24] MEDS: MELATONIN 5 MG TABLETS PO SCH (22:30)
[2023-04-24] MEDS: ACETAMINOPHEN 325 MG TABLET (FP) PO PRN (22:33)
[2023-04-25] MEDS: diazePAM 5 MG TABLET PO SCH ×4 (05:55→23:03)
[2023-04-25 10:14] LABS: POTASSIUM 3.9 mmol/L (3.5-5.1)
[2023-04-25 10:17] LABS: BLOOD UREA NITROGEN 11.2 mg/dL (7-18); CALCIUM 8.1 mg/dL (8.5-10.1)
[2023-04-25 10:20] LABS: HEMATOCRIT 35.1 % (32.4-45.2); HEMOGLOBIN 11.6 GM/dL (10.7-15.3); MCH 29.7 pg (25.7-33.7); MEAN CELL VOLUME 90.1 fl (80-96); MEAN PLT VOLUME 8.5 fl (7.5-11.1); PLATELET COUNT 239 10^3/uL (134-434); RBC 3.89 M/mm3 (3.60-5.2); RDW 15.1 % (11.6-15.6); WHITE BLOOD COUNT 3.2 K/mm3 (4.0-10.0)
[2023-04-25 10:22] LABS: BILIRUBIN,TOTAL 0.2 mg/dL (0.2-1); TOT PROT 6.3 g/dl (6.4-8.2)
[2023-04-25 10:23] LABS: CREATININE 0.7 mg/dL (0.55-1.3)
[2023-04-25] MEDS: NICOTINE 21 MG/24 HOURS TOPICAL PATCH TD SCH (11:00)
[2023-04-25] MEDS: DIVALPROEX SODIUM 500 MG TABLET E.C. PO SCH ×2 (11:00→23:03)
[2023-04-25] MEDS: QUEtiapine FUMARATE 100 MG TABLET (FP) PO SCH (11:00)
[2023-04-25] MEDS: FAMOTIDINE 20 MG TABLET PO SCH ×4 (11:00→23:03)
[2023-04-25] MEDS: FLUoxetine HCL 20 MG CAPSULE PO SCH (11:00)
[2023-04-25] MEDS: PRENATAL VITAMINS W/ FOLIC ACID TABLET (FP) PO SCH (11:00)
[2023-04-25] MEDS: COLLOIDAL OATMEAL 1 BAR EACH TP PRN (13:16)
[2023-04-25] MEDS: traZODone HCL 50 MG TABLET (FP) PO SCH (23:01)
[2023-04-25] MEDS: MELATONIN 5 MG TABLETS PO SCH (23:02)
[2023-04-25] MEDS: QUEtiapine FUMARATE 200 MG TABLET PO SCH (23:03)
[2023-04-25] MEDS: THIAMINE HCL 100 MG TABLET (FP) PO SCH (23:04)
[2023-04-26] MEDS: diazePAM 5 MG TABLET PO SCH ×4 (06:00→22:29)
[2023-04-26] MEDS ORDERED: methaDONE HCL 10 MG TABLET (FOR DETOX USE ONLY) PO ONE (10:00)
[2023-04-26] MEDS: NICOTINE 21 MG/24 HOURS TOPICAL PATCH TD SCH (10:12)
[2023-04-26] MEDS: FAMOTIDINE 20 MG TABLET PO SCH ×3 (10:14→22:29)
[2023-04-26] MEDS: DIVALPROEX SODIUM 500 MG TABLET E.C. PO SCH ×2 (10:14→22:29)
[2023-04-26] MEDS: PRENATAL VITAMINS W/ FOLIC ACID TABLET (FP) PO SCH (10:14)
[2023-04-26] MEDS: QUEtiapine FUMARATE 100 MG TABLET (FP) PO SCH (10:14)
[2023-04-26] MEDS: ACETAMINOPHEN 325 MG TABLET (FP) PO PRN (10:16)
[2023-04-26] MEDS: FLUoxetine HCL 20 MG CAPSULE PO SCH (10:39)
[2023-04-26] MEDS: COLLOIDAL OATMEAL 1 BAR EACH TP PRN (20:55)
[2023-04-26] MEDS: traZODone HCL 50 MG TABLET (FP) PO SCH (22:28)
[2023-04-26] MEDS: QUEtiapine FUMARATE 200 MG TABLET PO SCH (22:29)
[2023-04-26] MEDS: THIAMINE HCL 100 MG TABLET (FP) PO SCH (22:29)
[2023-04-26] MEDS: MELATONIN 5 MG TABLETS PO SCH (23:08)
[2023-04-27] MEDS: diazePAM 5 MG TABLET PO SCH ×2 (05:56→17:42)
[2023-04-27] MEDS: NICOTINE 21 MG/24 HOURS TOPICAL PATCH TD SCH (10:07)
[2023-04-27] MEDS: PRENATAL VITAMINS W/ FOLIC ACID TABLET (FP) PO SCH (10:07)
[2023-04-27] MEDS: QUEtiapine FUMARATE 100 MG TABLET (FP) PO SCH (10:08)
[2023-04-27] MEDS: FLUoxetine HCL 20 MG CAPSULE PO SCH (10:08)
[2023-04-27] MEDS: DIVALPROEX SODIUM 500 MG TABLET E.C. PO SCH ×2 (10:08→22:34)
[2023-04-27] MEDS: ACETAMINOPHEN 325 MG TABLET (FP) PO PRN (10:09)
[2023-04-27] MEDS: FAMOTIDINE 20 MG TABLET PO SCH ×2 (10:09→22:33)
[2023-04-27] MEDS: THIAMINE HCL 100 MG TABLET (FP) PO SCH (22:33)
[2023-04-27] MEDS: MELATONIN 5 MG TABLETS PO SCH (22:34)
[2023-04-27] MEDS: traZODone HCL 50 MG TABLET (FP) PO SCH (22:34)
[2023-04-27] MEDS: QUEtiapine FUMARATE 200 MG TABLET PO SCH (22:34)
[2023-04-28] MEDS ORDERED: diazePAM 5 MG TABLET PO ONE (06:00)
[2023-04-28] MEDS ORDERED: methaDONE HCL 10 MG TABLET (FOR DETOX USE ONLY) PO ONE (10:00)
[2023-04-28] MEDS: DIVALPROEX SODIUM 500 MG TABLET E.C. PO SCH ×2 (10:17→22:38)
[2023-04-28] MEDS: FLUoxetine HCL 20 MG CAPSULE PO SCH (10:17)
[2023-04-28] MEDS: PRENATAL VITAMINS W/ FOLIC ACID TABLET (FP) PO SCH (10:17)
[2023-04-28] MEDS: QUEtiapine FUMARATE 100 MG TABLET (FP) PO SCH (10:17)
[2023-04-28] MEDS: FAMOTIDINE 20 MG TABLET PO SCH ×2 (10:18→22:38)
[2023-04-28] MEDS: NICOTINE 21 MG/24 HOURS TOPICAL PATCH TD SCH (10:19)
[2023-04-28] MEDS: QUEtiapine FUMARATE 200 MG TABLET PO SCH (22:38)
[2023-04-28] MEDS: traZODone HCL 50 MG TABLET (FP) PO SCH (22:38)
[2023-04-28] MEDS: MELATONIN 5 MG TABLETS PO SCH (22:38)
[2023-04-28] MEDS: THIAMINE HCL 100 MG TABLET (FP) PO SCH (22:38)
[2023-04-29 09:12] VITALS: BP 126/42; PULSE 84; RESP 17; TEMP 96.9
[2023-04-29] MEDS: FLUoxetine HCL 20 MG CAPSULE PO SCH (09:41)
[2023-04-29] MEDS: NICOTINE 21 MG/24 HOURS TOPICAL PATCH TD SCH (09:41)
[2023-04-29] MEDS: DIVALPROEX SODIUM 500 MG TABLET E.C. PO SCH (09:41)
[2023-04-29] MEDS: PRENATAL VITAMINS W/ FOLIC ACID TABLET (FP) PO SCH (09:42)
[2023-04-29] MEDS: QUEtiapine FUMARATE 100 MG TABLET (FP) PO SCH (09:42)
[2023-04-29] MEDS: FAMOTIDINE 20 MG TABLET PO SCH (09:42)
== END 2023-04-29 11:45 | disposition home or self-care (01) | DRG 773 ==
LOC: YASAS 03:59 → Y6N 10:55
PROVIDERS: ADMIT Allergy & Immunology; ATTEND Surgery
PROC: HZ2ZZZZ Detoxification Services for Substance Abuse Treatment (ICD-10-PCS; principal; 2023-04-24)
DX: F11.23 Opioid dependence with withdrawal (principal); F10.230 Alcohol dependence with withdrawal, uncomplicated; F13.230 Sedative, hypnotic or anxiolytic dependence with withdrawal, uncomplicated; F14.20 Cocaine dependence, uncomplicated; F12.20 Cannabis dependence, uncomplicated; F17.210 Nicotine dependence, cigarettes, uncomplicated; F19.282 Other psychoactive substance dependence with psychoactive substance-induced sleep disorder; F31.9 Bipolar disorder, unspecified; Z62.810 Personal history of physical and sexual abuse in childhood; Z28.310 Unvaccinated for COVID-19; Z28.9 Immunization not carried out for unspecified reason; Z59.00 Homelessness unspecified
CPT/HCPCS: 36415; 80053; 80164; 81025; 85027; 86780; 87635; Q0162